=== PATIENT | female | born 1975 | race African-American/Black ===

== ENCOUNTER 2018-08-08 18:22 | Emergency (ER) | payer OTHER ==
[~2018-08-08] VITALS: Ht 157.5 cm; Wt 115.7 kg
[2018-08-08 18:56] LABS: ABSOLUTE NEUTROPHILS 14.3 thou/uL (1.4-8.2); BASOPHILS 0.5 % (0.0-2.0); EOSINOPHILS 0.4 % (0.0-3.0); HEMATOCRIT 38.1 % (37.0-47.0); HEMOGLOBIN 11.7 gm/dL (12.0-15.0); LYMPHOCYTES 8.6 % (24.0-44.0); MCH 22.6 pg (26.0-34.0); MCHC 30.8 g/dL (28.0-37.0); MCV 73.4 fL (80.0-100.0); MONOCYTES 5.1 % (1.0-8.0); PLATELET COUNT 344 thou/uL (150-400); POLYS 85.4 % (36.0-66.0); RDW 18.2 % (10.5-14.5); WBC 16.7 thou/uL (4.0-11.0)
[2018-08-08 19:07] LABS: CALCIUM 9.2 mg/dL (8.5-10.1); CREATININE 0.8 mg/dL (0.6-1.0); POTASSIUM 3.9 mmol/L (3.5-5.1)
[2018-08-08 19:40] LABS: ANISOCYTOSIS 2+; HYPOCHROMASIA 1+; PLATELET ESTIMATE NORMAL
[2018-08-08 19:41] LABS: MICROCYTES 2+
[2018-08-08] MEDS ORDERED: METFORMIN HCL500 MG PO (19:58)
[2018-08-08] MEDS ORDERED: KEFLEX500 M1 PO (19:58)
[2018-08-08] MEDS ORDERED: BACTRIM DS TAB1 EACH PO (19:58)
[2018-08-08 21:12] VITALS: BP 148/87
== END 2018-08-08 21:13 | disposition home or self-care (01) ==
LOC: ER 18:22
PROVIDERS: Emergency Medicine
DX: L03.221 Cellulitis of neck (principal); E11.9 Type 2 diabetes mellitus without complications; E78.00 Pure hypercholesterolemia, unspecified

== ENCOUNTER 2018-08-12 00:42 | Inpatient (IN) | payer OTHER ==
[2018-08-12] VITALS (12 sets, daily range): BP systolic 126–185; BP diastolic 71–107
[~2018-08-12] VITALS: Ht 157.5 cm; Wt 116.1 kg
--- NOTE | ~2018-08-12 | O ---
[facility] [place] [address] OPERATIVE REPORT Name: [facility] Room #: 449-I [facility] IN ..#: [id number] Admission: 08/12/18 ������������������ Attend Phys: Eloise Naqvi MD Discharge: 08/24/18 ������������������ Date of : 77 Report #: [id number] THIS REPORT FOR: //name// CC: WINNIE physician/PCP Eloise Naqvi DATE OF SERVICE: 08/19/2018 PREOPERATIVE DIAGNOSIS: Neck abscess with persistent drainage, status post incision and drainage. POSTOPERATIVE DIAGNOSIS: Neck abscess with fasciitis. OPERATIVE PROCEDURE: Incision, drainage and debridement of neck abscess and necrotic fascia. OPERATING SURGEON: Mike Ortiz MD. INDICATIONS FOR THE PROCEDURE: The patient is a 42-year-old female who presented with right-sided neck abscess. She had an incision and drainage done few days ago; however, she continues to have persistent drainage and on evaluation, was noted to have a residual abscess with necrotic fascia. The patient advised debridement and incision and drainage. DESCRIPTION OF PROCEDURE: After explaining to the patient in detail and informed consent was obtained, the patient was identified in the preoperative holding area. The patient was transferred to the operating room and was placed in supine position. Sequential compression devices were placed for DVT prophylaxis. The patient was already on antibiotics. No other preoperative antibiotics were given. The right side of the neck was prepped and draped in a sterile fashion. The previous neck incision was then extended by another 4 cm in the posterolateral direction and towards the neck. There were a lot of necrotic fascia that was noted, which was all excised using the Metzenbaum scissors. Thorough saline irrigation of the cavity was then given. There was also some necrotic fascia in the suprascapular region, which was all gently taken down. After packing all the fascia, thorough saline irrigation was given. All the loculations were broken down. The wound was then packed with 1/2-inch iodoform gauze. Dressing was placed. The patient was stable at the end of the procedure. The patient was awoken up from anesthesia and was transferred to the recovery room in stable condition. ESTIMATED BLOOD LOSS: 25 mL. CONDITION: The patient is stable. FLUIDS GIVEN: Per Anesthesia note. [facility] [address] [place] [address] O[facility]ATIVE REPORT [facility] Room #: 449-I [facility] IN [facility].#: [id number] Admission: 08/12/18 ������������������ Attend Phys: Eloise Naqvi MD Discharge: 08/24/18 ������������������ Date of : 77 Report #: [id number] SPECIMEN SENT: Pus for culture and sensitivity. ��������������������������������������������� ���������������������������������������� By: ��������������������������������������������� [id number] Mike Ortiz MD /nt
[~2018-08-12 00:42] MED LIST: BACTRIM DS TAB1 EACH PO; KEFLEX500 M1 PO; METFORMIN HCL500 MG PO
[2018-08-12 01:31] LABS: HEMATOCRIT 37.4 % (37.0-47.0); HEMOGLOBIN 11.6 gm/dL (12.0-15.0); MCH 22.5 pg (26.0-34.0); MCHC 30.9 g/dL (28.0-37.0); PLATELET COUNT 368 thou/uL (150-400); RBC 5.13 mil/uL (4.20-5.00); RDW 18.1 % (10.5-14.5); WBC 22.7 thou/uL (4.0-11.0)
[2018-08-12 01:39] LABS: CALCIUM 10.1 mg/dL (8.5-10.1); CREATININE 0.8 mg/dL (0.6-1.0)
[2018-08-12 02:08] LABS: ABSOLUTE NEUTROPHILS 16.6 thou/uL (1.4-8.2)
[2018-08-12 02:10] LABS: ANISOCYTOSIS 2+; HYPOCHROMASIA 2+; MICROCYTES 1+; POIKILOCYTOSIS 2+; POLYCHROMASIA 1+
[2018-08-12 02:11] LABS: LARGE PLATELETS FEW; PLATELET ESTIMATE NORMAL
[2018-08-12 04:43] LABS: HDL CHOLESTEROL 22 mg/dL (>40); LDL CHOLESTEROL 145 mg/dL (<100); TC:HDL 8.8 Ratio (Not establshd); TRIGLYCERIDE 139 mg/dL (<150); VLDL 28 mg/dL (<40)
[2018-08-12 04:52] LABS: CHOLESTEROL 193 mg/dL (<200)
[2018-08-12 04:58] LABS: SERUM ASSESSMENT Clear
--- NOTE | 2018-08-12 06:48 | NUR ---
PATIENT WAS A NEW ADMISSION TO THE UNIT THIS SHIFT. SHE ARRIVED VIA CART FROM THE ER AND WAS ABLE TO AMBULATE TO BED WITHOUIT INCIDENT. PATIENT IS FULLY ORIENTED AND ABLE TO PARTICIPATE IN ADMISSION AND CALL APPROPRIATELY FOR NEEDS. NURSE TO COMPLETE ADMISSION PROCESS AND INITIATE CARE PLAN.
--- NOTE | 2018-08-12 09:34 | NUR ---
WOUND CARE CONSULT; THIS PATIENT HAS THE S/S CONSISTANT WITH AN ABCESS OF THE POSERIOR NECK. INDURATION NOTED TO THE NECK AND UPPER BACK DRAINING PURULENT BROWNISH RED THICK DRAINAGE. THE PATIENT IS IN PAIN RECIEVING MORPHINE IV AT THIS TIME. SHE IS VERY UNCOMFORTABLE. A BOARDERED FOAM DRESSING WAS IN PLACE AND WAS OVERTAKEN BY THE DRAINAGE. RECOMMENDATION; AQUACEL AG TO WOUND BED, COVER WITH A BOARDERED FOAM DRESSING, CHANGE DAILY/PRN DISCUSSED WITH ZACHARY
--- NOTE | 2018-08-12 12:18 | NUR ---
Nutrition: screen for wound, however, wound on neck found to be abcess. Pt c/o pain, receiving morphine. Awaiting surgery consult and is currently NPO for possible I&D. BUN 5, no albumin. Meds reviewed. "0" pt's on nsg nutrition risk assessement. Assess at low nutrition risk at this time.
[2018-08-12 12:25] LABS: BE(vivo) -3.2 mmol/L (-2 to +3); HCO3 22.9 mmol/L (22.0-26.0); PCO2 45.4 mmHg (35.0-45.0); PO2 95.5 mmHg (80.0-100.0); sO2 96.7 % (92.0-98.0)
[2018-08-12 12:26] LABS: pH 7.321 (7.360-7.450)
[2018-08-12 15:07] LABS: GLYCOHEMOGLOBIN (HGB A1C) 11.7 % (4.8-5.6)
--- NOTE | 2018-08-12 19:00 | NUR ---
ASSUMED PATIENT CARE AT 0700. A/O X4. NECK HAS EDMEA WITH OPEN ULCER AND DRAINAGE. VSS WITH TEMP. SATRT 02 3L/NC AT THIS TIME. PATIENT AMBULATED IN ROOM. NPO UNTILL NOW. PATIENT WENT TO OR TO HAVE NECK ABCESS I &D. WILL KEEP MONITOR.
[2018-08-13] VITALS (10 sets, daily range): BP systolic 118–150; BP diastolic 59–90
[2018-08-13 05:24] LABS: HEMATOCRIT 30.4 % (37.0-47.0); MCH 22.7 pg (26.0-34.0); MCHC 30.6 g/dL (28.0-37.0); MCV 73.9 fL (80.0-100.0); RBC 4.11 mil/uL (4.20-5.00); RDW 18.4 % (10.5-14.5)
[2018-08-13 05:30] LABS: CREATININE 0.6 mg/dL (0.6-1.0); POTASSIUM 4.3 mmol/L (3.5-5.1)
[2018-08-13 05:36] LABS: CALCIUM 7.9 mg/dL (8.5-10.1)
[2018-08-13 05:43] LABS: HEMOGLOBIN 9.3 gm/dL (12.0-15.0)
--- NOTE | 2018-08-13 05:51 | NUR ---
PATIENT IS PROGRESSING SLOWLY IN HER CARE PLAN. VITAL SIGNS STABLE WITH PATIENT HAVING NO COMPLAINTS OF NAUSEA. PATIENT COMPLAINED OF PAIN IN BACK OF NECK FROM SURGICAL SITE AND WAS TREATED EFFECTIVELY WITH MEDICATION AND REPOSITIONING. PATIENT BROUGHT UP FROM PACU AROUND 2100 FOLLOWING I&D OF NECK WOUND. VITAL SIGNS TAKEN PER PROTOCOL. PATIENT EXHIBITED FEVER OF 102 AT HIGHEST BUT HAS SINCE SHOWN REDUCTION WITH TYLENOL AND NON PHARMACOLOGICAL INTERVENTION. BREATHING STABLE ON OXYGEN EVIDENCED BY READINGS ON CONTINUOUS SATURATION MONITOR. SURGICAL SITE HAS SHOWN SOME DRAINAGE AND HAS BEEN REINFORCED. PATIENT HAS BEEN UP TO THE BEDSIDE COMMODE WITH ASSISTANCE INCIDENT FREE, BUT SHOULD STILL BE CONSIDERED A FALL RISK. FULLY ORIENTED AND ABLE TO PARTICIPATE IN CARE. CONTINUE PLAN OF CARE.
--- NOTE | 2018-08-13 09:12 | HC ---
[facility] [place] [address] [facility] AD[facility] IN M.R.#: [id number] Admission: 08/12/18 ������������������ Attend Phys: Louie Garzon MD Discharge: ������������������ Date of : 77 Report #: [id number] THIS REPORT FOR: //name// CC: FAM physician/PCP Louie Garzon TYPE OF REPORT: Infectious disease consultation. ATTENDING PHYSICIAN: Louie Garzon M.D. REASON FOR CONSULTATION: Neck abscess. HISTORY OF PRESENT ILLNESS: The patient is a 42-year-old white woman, unwell for about a week, who apparently visited the Emergency Room this past Friday and was told nothing was the matter with her neck. Sonogram revealed no evidence of abscess. She returns to [facility] last night and she is admitted. She is having drainage per neck. On reviewing the CT scan of the neck, the most important thing is that she actually has a right upper lung abscess as well as swelling of the soft tissues of the right neck, which at present time are profusely draining. The patient is under the effects of morphine sulfate and she is totally unable to give much of any significant medical information. She is diabetic and on metformin for 6-8 years. At the Emergency Room, she visited on Friday, she was prescribed Bactrim and Keflex, which did not help with her present problem. DRUG ALLERGIES: None listed. MEDICATIONS: The patient is on treatment with single dose Zosyn 4.5 grams IV start, vancomycin 1250 mg IV every 12 hours, morphine sulfate 4 mg IV q. 4h. p.r.n., ondansetron 4 mg IV q. 4h. p.r.n., acetaminophen p.r.n., p.r.n. glucose, glucagon and insulin lispro per sliding scale. SOCIAL HISTORY: , 3 grown children. No tobacco. Occasional alcohol. PAST MEDICAL HISTORY: 1. Morbid obesity. 2. Diabetes mellitus for a number of years. On physical exam, the patient has obvious periodontal disease of the maxilla. She has a draining abscess of the neck and the CT scan of the chest revealed a right upper lobe lung abscess. FAMILY HISTORY: Not obtained. REVIEW OF SYSTEMS: Unable to obtain. PHYSICAL EXAMINATION: [facility] [address] [place] [address] CONSULTATION Name: [facility] Room #: [facility] ADM IN ..#: [id number] Admission: 08/12/18 ������������������ Attend Phys: Louie Garzon MD Discharge: ������������������ Date of : 77 Report #: [id number] GENERAL: Morbidly obese woman. VITAL SIGNS: Temperature 100.5, pulse 132, respirations 22, BP 145/90, height 5 feet 2 inches and weight 256 pounds. HEENMT: Pupils reactive. Mouth: The mandible, gums are obviously affected with periodontal disease. No thrush or hairy leukoplakia. NECK: Revealed swelling of the soft tissues and obviously drainage with some odor either coming from her mouth or from her neck, cannot say for sure. LUNGS: Clear to auscultation. HEART: S1 and S2. No gallop or murmur. BREASTS: Deferred. ABDOMEN: Obese and soft. No masses or megaly. PELVIC AND RECTAL: Deferred. EXTREMITIES: No clubbing or cyanosis. NEUROLOGICAL: Grossly within normal limits. LABORATORY DATA: Sodium 133, potassium 4, BUN 5, creatinine 0.8, glucose 337 and calcium 10.1. Lipids were obtained. The C-reactive protein is 379.7 mg/L. WBC 22,700; hemoglobin 11.6 g/dL and platelets 368,000. The test is negative. Hemoglobin A1c pending. Blood cultures and abscess cultures were obtained, they are all pending at the time of this dictation. RADIOLOGY EVALUATION: A CT scan of the soft tissues of the neck reveals soft tissue swelling on the neck and had right upper lung lesion compatible with a lung abscess. ASSESSMENT: 1. Neck abscess, question combination organisms in view of foul odor though odor maybe coming from the mouth due to periodontal disease. 2. Right lung abscess. 3. Diabetes mellitus. 4. Morbid obesity. SUGGESTIONS: Discussed the patient's situation with Dr. Louie Garzon and recommended CT scan of the chest. T-SPOT TB test. ESR. CRP. MRSA screen by PCR. Surgical consultation for incision and drainage of neck abscess. Full CT scan of the chest for evaluation of pulmonary abscess. We will need a dentist appointment later on an outpatient basis. Continue vancomycin and Zosyn 3.375 grams IV every 6 hours. Arterial blood gases had been ordered as well. Dr. Garzon, thank you for requesting my suggestions. ��������������������������������������������� <ELECTRONICALLY SIGNED> ���������������������������������������� By: Ethan Guthrie MD ��������������������������������������������� 08/13/18 0912 [id number] Ethan Guthrie MD /nt
--- NOTE | 2018-08-13 20:08 | NUR ---
PT RATES PAIN TO NECK SURGICAL SITE BETWEEN 7 AND 10 OUT OF 10..MEDICATED PER EMAR...VERY FLAT AFFECT..DROWSY...
--- NOTE | 2018-08-14 03:27 | NUR ---
PT UP IN CHAIR, AWAKE. HAS HAD RESTLESS NIGHT. C/O NECK BEING UNCOMFORTABLE. NECK REMAINS SWOLLEN, INFLAMED, PINK/RED AND WITH DRAINAGE. PT SR ON MONITOR. CONTINUES ON 2L NC AND ON MAINTENANCE IVFs. AM LABS TO BE DRAWN AND REVIEWED.
[2018-08-14 04:33] VITALS: BP 155/102
[2018-08-14 06:57] LABS: HEMATOCRIT 28.9 % (37.0-47.0); HEMOGLOBIN 8.8 gm/dL (12.0-15.0); MCH 22.2 pg (26.0-34.0); MCHC 30.6 g/dL (28.0-37.0); MCV 72.7 fL (80.0-100.0); RBC 3.98 mil/uL (4.20-5.00); RDW 18.5 % (10.5-14.5); WBC 14.8 thou/uL (4.0-11.0)
[2018-08-14 07:05] VITALS: BP 140/92
[2018-08-14 07:18] LABS: CALCIUM 8.6 mg/dL (8.5-10.1); CREATININE 0.8 mg/dL (0.6-1.0); POTASSIUM 3.3 mmol/L (3.5-5.1)
[2018-08-14 11:31] VITALS: BP 132/89
--- NOTE | 2018-08-14 11:48 | NUR ---
AAOX4 PLESANT WITH FLAT AFFECT. USES CALL LIGHT APPROPIRATELY. MORPHNE FOR PAIN. SPOUSE AT BEDSIDE. GOOD APPETITE. DRESSING TO POSTERIOR NECK DRY AND INTACT. UP TO BR WITH SLOW STEADY GAIT.
--- NOTE | 2018-08-14 14:59 | NUR ---
INITIAL ASSESSMENT: SW reviewed chart and spoke with nursing and attending physician. Pt was admitted from home due to sepsis/neck abscess. Pt is s/p I&D of abscess. Pt remains on IV abx. SW met with pt at bedside. Introduced role of SW. Pt is alert/orientated x 4. Pt reports she lives at home with her . Prior to admission, pt was independent with ADLs. No use of DME. Pt is currently on O2. Pt states she does not have a PCP. Pt has a list of [facility] providers. Unsure of discharge timeframe at this time. Plan is for pt to discharge home when medically stable. SW is following to assist as needed with discharge planning.
[2018-08-14 16:47] VITALS: BP 125/82
[2018-08-14 18:08] LABS: HIV ANTIBODY Non Reactive (Non Reactive)
--- NOTE | 2018-08-14 18:13 | NUR ---
POSTERIOR NECK DRESSING CHANGED - PURULENT DRAINAGE. WOUND REPACKED WITH AQUAGEL COVERED WITH KERLIX AND ABD.
[2018-08-14 19:30] VITALS: BP 117/68
[2018-08-15 03:59] VITALS: BP 138/86
[2018-08-15 05:35] LABS: HEMATOCRIT 28.3 % (37.0-47.0); HEMOGLOBIN 8.7 gm/dL (12.0-15.0); MCH 22.6 pg (26.0-34.0); MCHC 30.9 g/dL (28.0-37.0); MCV 73.1 fL (80.0-100.0); RBC 3.87 mil/uL (4.20-5.00); RDW 18.3 % (10.5-14.5); WBC 9.7 thou/uL (4.0-11.0)
[2018-08-15 05:36] LABS: CALCIUM 8.1 mg/dL (8.5-10.1); CREATININE 0.7 mg/dL (0.6-1.0); POTASSIUM 3.3 mmol/L (3.5-5.1)
--- NOTE | 2018-08-15 05:47 | NUR ---
ASSUMED CARE OF PT AT 1900. A&Ox4, COOPERATIVE. VS STABLE, SR ON TELE. C/O PAIN IN POSTERIOR NECK, WITH ERYTHEMA AND OPEN WOUND. PAIN MEDS GIVEN X 2 WITH PARTIAL RELIEF AND DRESSING CHANGED W/ SMALL AMOUNT OF SEROUSANGIOUS DRAINAGE. IV FLUIDS AND ANTIBX'S INFUSING ORDERED. WALKED HALLWAYS W/ SBA. NO ACUTE DISTRESS. DAUGHTER AT BEDSIDE. PROGRESSING TOWARDS POC GOALS.
[2018-08-15 08:16] VITALS: BP 141/78
[2018-08-15 16:29] VITALS: BP 104/65
--- NOTE | 2018-08-15 18:10 | NUR ---
AAOX4 VERY PLEASANT AND COOPERATVE. MSO4 AND HYDROCODONE FOR PAIN IN POSTERIOR NECK WOUND. DRESSING CHANGED X2 AND PACKED PURULENT WOUND WITH AQUAGEL COVERED WITH KERLIX AND ABD. RIGHT UPPER ARM IV SALINE LOCKED. FAIR APPETITE TOLERATING FOOD AND FLUIDS WITHOUT C/O N/V. FAMILY AT BEDSIDED. SHOWER TAKEN THIS AM WITH GOOD TOLERATION OF ACTIVITY. ENCOURAGE PATIENT TO AMBULATE.
[2018-08-15 19:15] VITALS: BP 137/85
[2018-08-16 03:45] VITALS: BP 145/84
--- NOTE | 2018-08-16 03:55 | NUR ---
ASSUMED CARE AT START OF SHIFT PT C/O PAIN AT NECK WOUND SITE, DRESSING CHANGED AT 2300 LARGE AMOUNT OF PUS LIKE DRAINAGE NOTED, PAIN MEDICATION GIVEN PRESCRIBED , TOLERATED DRESSING . DISCUSSED PLAN OF CARE AND AGREEABLE , CARDIAC MONIOTR SHOWS NSR , WILL CONINTUE WITH POC AND EPORT CHANGES OR ABNORMAL FINDINGS.
[2018-08-16 07:41] VITALS: BP 135/97
[2018-08-16 14:30] LABS: T-SPOT.TB Negative
--- NOTE | 2018-08-16 16:06 | NUR ---
ASSUMED CARE OF PT AT APPROX 0700. PT IS ALERT AND ORIENTED X4, MONITOREDON TELE AND ABLE TO MAINTAIN 02 SAT >90 ON RA. DENIES SOA, EVEN NON LABORED BREATHING. COMPLAINS OF PAIN IN NECK AT SITE OF I AND D THAT IS CONTROLLED WITH PRN PAIN MEDICATIONS. ASSESSMENT CHARTED. WOUND CARE PROVIDED X2 TODAY DRESSING BECAME SATURATED AND WAS LEAKING. PT TOLERATED WELL. PT UPDATED ON POC AND DENIES ANY NEW CONCERNS OR QUESTIONS. WILL CONTINUE TO MONITOR.
[2018-08-16 16:29] VITALS: BP 147/80
[2018-08-16 20:00] VITALS: BP 149/95
[2018-08-17 00:08] VITALS: BP 137/81
--- NOTE | 2018-08-17 03:28 | NUR ---
ASSUMED PT CARE AROUND 1900. A&OX4. C/O POSTERIOR NECK PAIN AT ABSCESS SITE. HYDROCODONE GIVE INDICATED FOR PAIN. PT STATED PAIN IMPROVED WITH MEDICATION. PT SLEPT PART OF THE NIGHT. RESP EVEN AND UNLABORED. VSS. UP AD ALEXANDRE AROUND THE ROOM WITH STEADY GAIT. NECK WOUND DRESSING CHANGED TWICE SO FAR THIS SHIFT DUE TO EXCESS DRAINAGE. PROGRESSING SLOWLY TOWARD POC GOALS. WILL CONTINUE TO MONITOR FURTHER.
[2018-08-17 04:00] VITALS: BP 143/84
[2018-08-17 06:56] LABS: HEMATOCRIT 29.4 % (37.0-47.0); HEMOGLOBIN 8.9 gm/dL (12.0-15.0); MCH 22.2 pg (26.0-34.0); MCHC 30.3 g/dL (28.0-37.0); MCV 73.2 fL (80.0-100.0); RBC 4.01 mil/uL (4.20-5.00); RDW 18.3 % (10.5-14.5); WBC 6.2 thou/uL (4.0-11.0)
[2018-08-17 07:04] LABS: CALCIUM 8.8 mg/dL (8.5-10.1); CREATININE 0.7 mg/dL (0.6-1.0); MAGNESIUM 2.2 mg/dL (1.8-2.4); POTASSIUM 3.5 mmol/L (3.5-5.1)
[2018-08-17 07:49] VITALS: BP 151/99
--- NOTE | 2018-08-17 08:00 | NUR ---
INSTRUCTED BY YEMI LLANES AND DR. MAGAÑA TO TRANSFER PT TO MED/SURG SARY.
--- NOTE | 2018-08-17 08:26 | NUR ---
REPORT CALLED TO [facility] 4TH FLOOR. TELE DISOCONTINUED AND PT TRANSFERRED TO ROOM 455.
[2018-08-17 08:44] VITALS: BP 151/82
--- NOTE | 2018-08-17 11:52 | NUR ---
PT RECEIVED FROM 3W THIS AM AT 0820. PT ALERT AND IN NO ACUTE DISTRESS. POSTERIOR NECK INFECTION. I&D ON 08/12 BUT STILL DRAINING PURULENT DRAINAGE. DR. RETANA IN AND STATES PT NEEDED ADDITIONAL I&D FOR INCREASED TISSUE SWEELING. ULTRASOUND OF AREA TO BE COMPLETED. ANTIBIOTICS CHANGED. INCISION AREA FLUSHED W/ NS AND REDRESSED PER DR. PRATT.
[2018-08-17 14:20] VITALS: BP 151/92
--- NOTE | 2018-08-17 18:39 | NUR ---
PT SEEN BY WOUND CARE NURSE THIS AFTERNOON AND DSNG CHANGED. PURULENT DRAINAGE OUT. NORCO TAKING CARE OF PAIN. ACCUCK BETTER. PT UP IN THE ROOM.
[2018-08-17 20:37] VITALS: BP 168/101
--- NOTE | 2018-08-18 02:57 | NUR ---
Patient assessed and is alert x 4. Skin warm and dry. Resp even and unlabored. SITTING UP IN CHAIR HAS DRESSING DRY AND IS LEAKING SOME, REINFORCED AND IS DRAINING GREESNISH/ROMEO DISCHARGE. LUNGS CTA. TAKING DIET WELL. RIGHT UPPER ARM IV GETTING SORE, HAD NEW #22 STARTED IN LEFT UPPER ARM/CHEST THAT WORKIS WELL. IV ANTIBIOTICS CONTINUE TO INFUSE. PAIN MED GIVEN WITH GOOD RELIEF. NECK WOUND REINFORCED AGAIN THIS AM. NO OTHER WOUNDS NOTED. CONT PLAN OF CARE. FAMILY AT BEDSIDE. ON ROOM AIR.
[2018-08-18 04:12] VITALS: BP 166/103
[2018-08-18 04:54] LABS: HEMATOCRIT 28.9 % (37.0-47.0); HEMOGLOBIN 8.9 gm/dL (12.0-15.0); MCH 22.7 pg (26.0-34.0); MCHC 30.7 g/dL (28.0-37.0); RBC 3.9 mil/uL (4.20-5.00); RDW 18.5 % (10.5-14.5); WBC 5.9 thou/uL (4.0-11.0)
[2018-08-18 04:57] LABS: CALCIUM 8.4 mg/dL (8.5-10.1); CREATININE 0.6 mg/dL (0.6-1.0); POTASSIUM 4.1 mmol/L (3.5-5.1)
[2018-08-18 07:18] VITALS: BP 163/91
[2018-08-18 08:55] VITALS: BP 155/91
--- NOTE | 2018-08-18 10:43 | NUR ---
Nutrition: No new wt. Nsg noted pt taking po well, no intake records. BG 118-181, BUN 3. Meds reviewed. Physician noted yesterday pt improved without complaints but some neck pain and may need drainage and debridement on Fri. Rec offer snacks/supplement PRN. Continues at low nutrition risk.
--- NOTE | 2018-08-18 12:01 | NUR ---
DP FAXED FACESHEET TO [facility] [phone] & [facility] [phone] ASKING IF THEY WOULD CHECK HOME INFUSION BENEFITS IN CASE PATIENT NEES IV ANTIBIOTICS AT [place].
[2018-08-18 14:32] VITALS: BP 145/80
--- NOTE | 2018-08-18 17:23 | NUR ---
ASSUMED CARE OF PT AT APPROX 0700. PT IS ALERT AND ORIENTED X4 AND ABLE TO MAINTAIN 02 SAT >90 ON RA. ASSESSMENT CHARTED. PT COMPLAINS OF NECK PAIN RELATED TO WOUND THAT IS CONTROLLED WITH PRN PAIN MEDICATIONS. DRESSING CHANGE PROVIDED X3 TODAY. PT WILL GO FOR MORE SURGERY TO WOUND IN THE AM. TO BE NPO AFTER MIDNIGHT. PT HAS BEEN UPDATED ON POC. DENIES FURTHER QUESTIONS OR CONCERNS. WILL CONTINUE TO MONITOR.
[2018-08-18 19:26] VITALS: BP 122/86
[2018-08-19 03:31] VITALS: BP 147/81
--- NOTE | 2018-08-19 05:23 | NUR ---
Assumed care at 1845. Pt resting in bed. AOX4. VSS. Up at jennifer with steady gait. Has been NPO since midnight for possible surgery. Gave hydrocodone once for c/o posterior neck pain at abscess site. Resp even and unlabored. No identified needs at the moment. Will continue to monitor.
[2018-08-19 05:25] LABS: HEMATOCRIT 30.8 % (37.0-47.0); HEMOGLOBIN 9.4 gm/dL (12.0-15.0); MCH 22.6 pg (26.0-34.0); MCHC 30.4 g/dL (28.0-37.0); MCV 74.2 fL (80.0-100.0); RBC 4.15 mil/uL (4.20-5.00); RDW 17.9 % (10.5-14.5); WBC 6.3 thou/uL (4.0-11.0)
[2018-08-19 05:37] LABS: CALCIUM 8.4 mg/dL (8.5-10.1); CREATININE 0.8 mg/dL (0.6-1.0); MAGNESIUM 1.8 mg/dL (1.8-2.4); POTASSIUM 3.9 mmol/L (3.5-5.1)
--- NOTE | 2018-08-19 07:49 | NUR ---
RECEIVED REPORT FROM NIGHT NURSE AT 0700, PT IS OFF THE UNIT AT THIS MOMENT FOR I& D. NO INSULIN GIVEN AT THIS MOMENT. WILL CONTINUE TO MONITOR.
[2018-08-19 09:30] VITALS: BP 142/64
--- NOTE | 2018-08-19 12:04 | NUR ---
received voice message from [facility] ([facility] ) , able to assist with dcp if needing home iv, [facility], if needs wound vac- [facility] wound vac. can have 50 nursing visits per year and she has not used any. don't think she going to skilled she is to young. if have any question on needs call [phone] ext [phone]"/narda with [facility]. information passed on to cm/sw team
--- NOTE | 2018-08-19 14:29 | NUR ---
CONSULTED TO PLACE A PICC FOR A PATIENT POST SURGICAL PROCEDURE WITH IV ANTIBIOTICS NEEDED. ORDER AND CONSENT NOTED. THE PROCEDURE WELL BENIFITS AND RISKS DISCUSSED WITH THE PATIENT AND SHE VERBALIZED UNDERSTANDING. THE LEFT UPPER ARM BASILIC WAS WIDLEY PATENT. A #4F DOUBLE LUMEN POWER PICC WAS PLACED PER HOSPITAL POLICY AFTER A BEDSIDE TIMEOUT WAS COMPLETED. PICC WAS TRIMMED TO 52CM AND ADVANCED WITHOUT DIFFICULTY TO 51CM. A STAT CHEST XRAY WAS ORDERED FOR CONFIRMATION.
[2018-08-19 15:00] VITALS: BP 146/91
--- NOTE | 2018-08-19 15:14 | NUR ---
SHOULD PT NEED HOME INFUSION FOR IV ABX UPON DISHCARGE REFERRAL HAD BEEN SENT TO [facility]. ORDERS AND IV ABX REC WILL NEED TO BE FAXED TO THEM AT . CALL THEM AT OR THE PHARMASIST DIRECTLY AT . [facility] INDICATED THEY CAN PROVIDE HOME HEALTH ORDERS WILL NEED TO BE FAXED TO CALL THEM AT .
[2018-08-19 20:13] VITALS: BP 150/88
[2018-08-20 03:19] VITALS: BP 147/79
--- NOTE | 2018-08-20 04:41 | NUR ---
Pt. rested quietly at intervals during the night when checked on during frequent rounds. She c/o neck pain and was given po pain meds (see emar) with some relief noted. Dressing to neck is intact.
[2018-08-20 06:42] LABS: HEMATOCRIT 29.9 % (37.0-47.0); HEMOGLOBIN 9.2 gm/dL (12.0-15.0); MCH 22.7 pg (26.0-34.0); MCHC 30.8 g/dL (28.0-37.0); MCV 73.6 fL (80.0-100.0); RBC 4.06 mil/uL (4.20-5.00); RDW 18.4 % (10.5-14.5); WBC 7.5 thou/uL (4.0-11.0)
[2018-08-20 06:51] LABS: CALCIUM 8.5 mg/dL (8.5-10.1); CREATININE 0.6 mg/dL (0.6-1.0); POTASSIUM 4.1 mmol/L (3.5-5.1)
[2018-08-20 08:00] VITALS: BP 143/86
[2018-08-20] MEDS ORDERED: HYDROCODON-ACE1 EAC7 PO (14:13)
[2018-08-20 15:00] VITALS: BP 147/75
--- NOTE | 2018-08-20 18:33 | NUR ---
PT STABLE THROUGHOUT SHIFT. PT C/O PAIN, ADDRESSED WITH MEDICATION WHICH OFFERED SUBSTANTIAL RELIEF. PT HAD NO OTHER COMPLAINTS. CHANGED DRESSING, FAMILY IN TO VISIT. PT RESTING COMFORTABLY.
[2018-08-20 19:08] VITALS: BP 133/72
--- NOTE | 2018-08-21 02:35 | NUR ---
ASSUMED CARE AROUND 1899. AXOX4. POSTERIOR NECK DRESSING DRANING SANGUINEOUS DRAIN. DRESSING CHNAGED. PAIN TX PER MD ORDER. DYLAN PICC INTACT. NO S/S ACUTE DISTRESS NOTED OR REPORTED AT THIS TIME. WILL CONT TO MONITOR FOR ANY CHANGES IN CONDITION.
[2018-08-21 04:59] VITALS: BP 142/66
[2018-08-21 09:00] VITALS: BP 149/100
--- NOTE | 2018-08-21 09:52 | NUR ---
DISCHARGE PLANNING. ANTICIPATED DISCHARGE TO HOME NEXT WEEK. PATIENT WILL NEED IV ANTIBIOTICS AT DISCHARGE. REFERRAL FAXED TO [facility], [facility], [facility] FOR IV ANTIOBIOTIC NEEDS. CALL PLACED TO [facility] TO NOTIFY. AWAITING CALL BACK. FOLLOWING TO ASSIST WITH DISCHARGE.
--- NOTE | 2018-08-21 09:55 | NUR ---
LIZA reviewed chart and spoke with nursing. Pt has second I&D yesterday for neck abscess. Pt remains on IV abx-Unasyn. Pt has PICC line in place. [facility] is following for home IV abx. senior media planner to fax additional info. LIZA contacted ID physician for final recommendations for IV abx. [facility] is following for services. Contact info for both agencies if pt is ready for discharge home over the weekend. Final discharge orders and summary will need to be faxed when available. LIZA is available to assist as needed. [facility]-- [facility]--
[2018-08-21 14:25] VITALS: BP 147/87
--- NOTE | 2018-08-21 15:06 | NUR ---
PT STABLE THROUGHOUT SHIFT. CHANGED DRESSING ON WOUND, PT TOLERATED WELL. PT C/O PAIN, MEDICATION ALLEVIATED PARTIALLY. FAMILY AT BEDSIDE.
[2018-08-21 20:35] VITALS: BP 152/93
[2018-08-22 03:45] VITALS: BP 146/90
--- NOTE | 2018-08-22 04:25 | NUR ---
ASSUMED CARE AROUND 1900. AXOX4. DRESSING CHANGED PER MD ORDER. NO S.S ACUTE DISTRESS NOTED OR REPORTED AT THIS TIME. WILL CONT TO MONITOR FOR ANY CHANGES IN CONDITION.
[2018-08-22 04:51] LABS: HEMATOCRIT 30.3 % (37.0-47.0); HEMOGLOBIN 9.4 gm/dL (12.0-15.0); MCHC 30.9 g/dL (28.0-37.0); MCV 74.3 fL (80.0-100.0); RBC 4.07 mil/uL (4.20-5.00); RDW 18.5 % (10.5-14.5); WBC 6.7 thou/uL (4.0-11.0)
[2018-08-22 05:14] LABS: CALCIUM 8.7 mg/dL (8.5-10.1); CREATININE 0.7 mg/dL (0.6-1.0)
[2018-08-22 07:37] VITALS: BP 141/80
[2018-08-22 15:49] VITALS: BP 173/88
--- NOTE | 2018-08-22 16:56 | NUR ---
PT STABLE THROUGHOUT SHIFT. C/O PAIN ADDRESSED WITH MEDICATION. CHANGED DRESSING ON NECK 3X. FAMILY AT BEDSIDE. PT RESTING COMFORTABLY.
[2018-08-22 19:21] VITALS: BP 124/68
[2018-08-23 05:46] VITALS: BP 125/72
[2018-08-23 08:30] VITALS: BP 147/83
[2018-08-23 08:36] LABS: HEMATOCRIT 30.5 % (37.0-47.0); HEMOGLOBIN 9.4 gm/dL (12.0-15.0); MCH 22.9 pg (26.0-34.0); MCHC 30.9 g/dL (28.0-37.0); RBC 4.13 mil/uL (4.20-5.00); RDW 19.1 % (10.5-14.5); WBC 6.4 thou/uL (4.0-11.0)
[2018-08-23 08:44] LABS: CALCIUM 8.7 mg/dL (8.5-10.1); CREATININE 0.6 mg/dL (0.6-1.0); POTASSIUM 3.9 mmol/L (3.5-5.1)
--- NOTE | 2018-08-23 15:02 | NUR ---
PT STABLE THROUGHOUT SHIFT. CHANGED DRESSING, WOUND APPEARS TO BE HEALING WELL. NO NEW CONCERNS, PT C/O PAIN WHICH WAS ALLEVIATED VIA MEDICATION. FAMILY AT BEDSIDE. PT RESTING.
[2018-08-23 19:10] VITALS: BP 128/73
[2018-08-23 20:53] VITALS: BP 117/78
--- NOTE | 2018-08-24 03:19 | NUR ---
ASSUMED CARE AROUND 1900. AXOX4. POSTERIOR NECT DRESSING CDI. NO S/S ACUTE DISTRESS NOTED OR REPORTED AT THIS TIME. WILL CONT TO MONITOR FOR ANY CHANGES IN CONDITION.
[2018-08-24 04:10] VITALS: BP 122/80
[2018-08-24 08:52] VITALS: BP 118/85
[2018-08-24 13:51] VITALS: BP 118/85
--- NOTE | 2018-08-24 13:56 | NUR ---
DISCHARGE NOTE: LIZA reviewed chart and spoke with nursing, attending physician and ID physician. Pt is medically stable for discharge home today. Pt to need IV Unasyn 12 gm daily for 7 days. It will need to be a continuous infusion. LIZA faxed info to [facility] and spoke with [facility]. Pt's copay if she has not met her out of pocket deductible is $7.94/day until OOP is met. Once OOP is met, pt will be covered at 100%. LIZA met with pt at bedside to provide update. Pt is aware and agreeable with copay. LIZA explained that [facility] will come provide education and teaching prior to discharge. LIZA faxed script to [facility]. [facility] RN to come provide bedside teaching this afternoon. LIZA notified intake at [facility]. Dr. Garzon to follow for orders. Pt will follow up with Dr. Guthrie next Friday. Contact info for [facility] and [facility] placed in discharge summary. Pt's family will provide transportation home. Patient Choice of Vendor form signed and placed on pt's chart. [facility] is available to assist should needs arise.
[2018-08-24] MEDS ORDERED: SULBACTAM IV (14:46)
[2018-08-24] MEDS ORDERED: AMPICILLIN IV (14:46)
[2018-08-24] MEDS ORDERED: WORK RELEASE (15:48)
[2018-08-24 16:31] VITALS: BP 118/70
--- NOTE | 2018-08-24 16:45 | NUR ---
ASSUMED CARE AT 0700, SHIFT ASSESSMNET DONE, MEDS GIVEN, REPORTED PAIN, PRN PAIN MEDS GIVEN. DRESSING CHANGE TO NECK WAS PERFORMED, PICTURE TAKEN. UP AD ALEXANDRE. DISCHARGE ORDER RECEIVED, PICC LINE IN PLACE FOR IV ANTIBIOTICS. WILL CONTINUE TO ASSESS AND ASSIST WITH ADLs NEEDED.
[2018-08-24 17:46] VITALS: BP 118/85
--- NOTE | 2018-08-26 15:45 | HC ---
[facility] [place] [address] [facility] IN ..#: [id number] Admission: 08/12/18 ������������������ Attend Phys: Eloise Naqvi MD Discharge: 08/24/18 ������������������ Date of : 77 Report #: [id number] THIS REPORT FOR: //name// CC: WINNIE physician/PCP Eloise Naqvi DATE OF SERVICE: 08/24/2018 CHIEF COMPLAINT: Surgical wound to the neck. HISTORY OF PRESENT ILLNESS: This is a 42-year-old female patient who was admitted to the hospital with a possible abscess to her neck. She underwent operative debridement by Dr. Ortiz on 08/12/2018 and then a subsequent additional debridement with drainage and debridement of the neck abscess and necrotic fascia on 08/19/2018. She has been managed by General Surgery followed by the hospitalist and Dr. Guthrie. Dr. Guthrie has specifically requested that I see her today prior to discharge. PAST MEDICAL HISTORY: Positive for type 2 diabetes mellitus, hyperlipidemia and medication noncompliance. MEDICATIONS: Include metformin, Bactrim and Keflex. ALLERGIES: None. SOCIAL HISTORY: Negative for alcohol or tobacco use. FAMILY HISTORY: Noncontributory. REVIEW OF SYSTEMS: CONSTITUTIONAL: The patient denies fever, chills or weight loss. NEUROLOGICAL: The patient denies focal numbness, weakness or tingling. EYES: The patient denies visual changes, redness, or drainage. ENT: The patient denies earache, nasal drainage or sore throat. CARDIOVASCULAR: The patient denies chest pain, palpitations or diaphoresis. PULMONARY: The patient denies cough or shortness of breath. GASTROINTESTINAL: The patient denies nausea, vomiting, diarrhea or abdominal pain. ORTHOPEDIC: The patient has pain and some drainage from her neck. Other systems in 14-point review of systems are negative. PHYSICAL EXAMINATION: VITAL SIGNS: At this time include temperature 37.0, pulse 84, respiratory rate of 18, blood pressure 118/85. GENERAL: This is a chronically ill-appearing female patient who appears to be in no distress. [facility] [address] [place] [address] CONSULTATION Name: [facility] Room #: 449-I [facility] IN ..#: [id number] Admission: 08/12/18 ������������������ Attend Phys: Eloise Naqvi MD Discharge: 08/24/18 ������������������ Date of : 77 Report #: [id number] HEENT: Head normocephalic. Nose and throat are clear. NECK: Demonstrates a fairly large surgical wound to the posterolateral on the right side of the neck, surgical wound. It is relatively clean and granulating. There is still some mucopurulent drainage, although the base is healthy, clean with granulation tissue. There is undermining on a 360 degrees around. No exposure of deep structure is noted at this time. LUNGS: Clear. HEART: Sounds normal. ABDOMEN: Bowel sounds present. LABORATORY STUDIES: Include sodium 138, potassium 3.9, chloride 103, CO2 27, BUN 6, creatinine 0.6. Hemoglobin A1c is 11.7. White blood cell count 6.4 with a hemoglobin 13.5, recent hemoglobin of 9.4 and hematocrit 30.5. CLINICAL IMPRESSION: 1. Surgical wound to the right and posterior neck following incision and debridement of abscess. 2. Diabetes mellitus with hyperglycemia. 3. Hyperlipidemia. RECOMMENDATIONS: At this point in time, the patient is going home today. We will recommend continuation of the packing orders per General Surgery. She is to follow up in one week with Dr. Guthrie. He has requested that we follow her up in the wound clinic, which we are happy to do; however, also happy to defer to Surgery's desire for her post discharge follow up as they have followed her during her hospitalization. I appreciate being asked to see her in consultation. ��������������������������������������������� <ELECTRONICALLY SIGNED> ���������������������������������������� By: Zane oMnge MD ��������������������������������������������� 08/26/18 1545 1521 1944 Zane Monge MD /nt
--- NOTE | 2018-09-04 12:35 | O ---
[facility] [place] [address] O[facility]AT[facility] Room #: 449-I [facility] M.R.#: [id number] Admission: 08/12/18 ������������������ Attend Phys: Eloise Naqvi MD Discharge: 08/24/18 ������������������ Date of : 77 Report #: [id number] THIS REPORT FOR: //name// CC: WINNIE physician/PCP Louie Garzon DATE OF SERVICE: 08/12/2018 PREOPERATIVE DIAGNOSIS: Neck abscess. POSTOPERATIVE DIAGNOSIS: Neck abscess. OPERATIVE PROCEDURE: Incision and drainage of neck abscess. OPERATING SURGEON: Dr. Mike Ortiz. INDICATIONS FOR THE PROCEDURE: The patient is a 42-year-old female who presented with features of gradually increasing redness, swelling and pain over the neck and it started to discharge pus. The patient clinically was noted to have a neck abscess. The patient was advised incision and drainage of the same. DESCRIPTION OF PROCEDURE: After explaining to the patient in detail and informed consent was obtained, the patient was identified in the preoperative holding area. The patient was transferred to the operating room and was placed in supine position. Sequential compression devices are placed for DVT prophylaxis. Preoperative antibiotics were given. After induction of anesthesia, the patient was placed in the right lateral position. The neck was prepped and draped in a sterile fashion. A transverse incision measuring approximately about 5 cm was made in the right posterior region and pus started to drain. The fascia appeared to be necrotic and the abscess appeared to be extending to the lateral aspect of the neck where on pressure, the pus was draining and therefore, I broke down all the loculations. The abscess was deep to the fascia. Part of it was superficial to the fascia. Most of the necrotic tissue was removed. Thorough saline irrigation was given. Approximately about 40 mL of thick pus was drained. Pus was sent for culture and sensitivity. After thorough saline irrigation, the wound was packed with 1/2 inch Nu Gauze. Dressing was placed. The patient was stable at the end of the procedure. The patient was awoken up from anesthesia and was transferred to the recovery room in stable condition. ESTIMATED BLOOD LOSS: 10 mL. CONDITION: The patient is stable. FLUIDS GIVEN: Per anesthesia notes. [facility] [address] [place] [address] OPERATIVE REPORT Name: [facility] Room #: 449-I [facility] [place] .R.#: [id number] Admission: 08/12/18 ������������������ Attend Phys: Eloise Naqvi MD Discharge: 08/24/18 ������������������ Date of : 77 Report #: [id number] SPECIMEN SENT: Pus for culture and sensitivity. ��������������������������������������������� <ELECTRONICALLY SIGNED> ���������������������������������������� By: Mike Ortiz MD ��������������������������������������������� 09/04/18 [id number] Mike Ortiz MD /nt
== END 2018-08-24 19:14 | disposition home health service (06) | DRG 853 ==
LOC: ER 00:42 → EROBS 03:46 → 4W 03:46 → 3W 03:46 → 4W 08-17 08:34
PROVIDERS: Emergency Medicine; Hospitalist; Internal Medicine; Internal Medicine Infectious Disease; Nurse Practitioner Family; Surgery; ADMIT Internal Medicine
DX: A41.81 Sepsis due to Enterococcus (principal); J85.2 Abscess of lung without pneumonia; L03.221 Cellulitis of neck; L02.11 Cutaneous abscess of neck; L02.419 Cutaneous abscess of limb, unspecified; Z68.42 Body mass index [BMI] 45.0-49.9, adult; E78.5 Hyperlipidemia, unspecified; E78.00 Pure hypercholesterolemia, unspecified; E11.65 Type 2 diabetes mellitus with hyperglycemia; E66.01 Morbid (severe) obesity due to excess calories; K05.6 Periodontal disease, unspecified; M72.9 Fibroblastic disorder, unspecified; R91.1 Solitary pulmonary nodule; Z79.84 Long term (current) use of oral hypoglycemic drugs; Z79.899 Other long term (current) drug therapy; Z91.14 Patient's other noncompliance with medication regimen
CPT/HCPCS: 10047; 10879; 27000; 50010; 50101; 50386; 50398; 50417; 62110; 62900; 70005

== ENCOUNTER → 2018-08-28 | Outpatient (CLI) | payer OTHER ==
[~2018-08-28] MED LIST changes: +AMPICILLIN IV; +HYDROCODON-ACE1 EAC7 PO; +SULBACTAM IV; +WORK RELEASE
== END ==
LOC: CAT 09:56
DX: L02.11 Cutaneous abscess of neck (principal); R59.1 Generalized enlarged lymph nodes

== ENCOUNTER → 2018-08-31 | Outpatient (CLI) | payer OTHER ==
--- NOTE | 2018-09-01 09:00 | HC ---
[facility] [place] [address] CONSULTATION Name: SANTOS SANDOVAL Room #: REG DEL Myra#: [id number] Admission: 08/31/18 ������������������ Attend Phys: Zane Monge MD Discharge: ������������������ Date of : 77 Report #: [id number] THIS REPORT FOR: //name// CC: Mason Brennan MD FAM unknown Zane Aceves MD DATE OF SERVICE: 08/31/2018 HISTORY OF PRESENT ILLNESS: The patient is a 42-year-old [place] woman, discharged on ____ with discharge diagnosis of cervical abscess due to Enterococcus faecalis, status post incision and drainage x 2 and right-sided lung abscess, undetermined etiology. The patient also is known to be diabetic and to have significant periodontal disease of incisors up jaw. She was discharged on Unasyn 12 grams IV daily through continuous infusion. She returns for followup to the Wound Care Clinic today, already seen by Dr. Monge. The patient apparently had a CT scan of the neck this past Friday, but somehow despite the correct entry of order of CT scan of the chest, this was not done. Furthermore, I was not informed of the findings. I reviewed films with radiologist and requested for future reference, that I must be called with abnormal findings on CT scan ordered by me on my patients. The patient denies having any significant neck pain, fevers or side effects, ill effects from intravenous Unasyn. MEDICATIONS: Unasyn 12 g IV daily through continuous infusion right arm PICC, p.r.n. hydrocodone, p.r.n. Tylenol. She is on oral hypoglycemic agents. PHYSICAL EXAMINATION: GENERAL: A well-developed, not toxic looking woman, wearing some extension hair locks that are falling over her neck. HEENT: Mouth reveals significant periodontal disease. I once again emphasized need to proceed to have those cleaned or ____ full dental extraction. Neck wound rather clean with no purulence, significant undermining. LUNGS: Clear to auscultation. HEART: S1, S2. No gallop or murmur. Right arm PICC site looks fine. EXTREMITIES: No edema. ABDOMEN: Benign. LABORATORY DATA: The CT scan of the neck is reviewed with Dr. Andrea Yusuf and the CT scanning reportedly showed some lung abscess. I am not sure that the radiologist that read this CT scan compared with previous CT scan. We will try to see how much of the lung we can evaluate, but obviously the CATs do not go all the way down to the right-sided lung abscess. She must obtain CT scan of [address] [address] [facility] #: REG DEL Renteria#: [id number] Admission: 08/31/18 ������������������ Attend Phys: Zane Monge MD Discharge: ������������������ Date of : 77 Report #: [id number] the chest repeated or done again today. ASSESSMENT: 1. Cervical abscess secondary to Enterococcus faecalis, status post incision and drainage x 2. 2. Right-sided lung abscess, undetermined etiology. Suspect anaerobic organism. 3. Diabetes mellitus. 4. Significant periodontal disease. 5. Anemia of chronic disease. SUGGESTIONS: Recommend CBC with differential, ESR, CRP, CMP. Advised the patient must proceed with a repeat CT scan of the chest today. I will evaluate later on with radiologist. The patient will continue Unasyn 12 g IV daily through continuous infusion. Discussed these with [facility], which will contact ____ for delivery of the medication. We will discuss situation with either Dr. Kei Brennan or Dr. Angel Aceves regarding followup during my vacation time starting on 09/05/2018. Again emphasized with the patient the need to have dental extractions. Wound care per Dr. Zane Monge. ��������������������������������������������� <ELECTRONICALLY SIGNED> ���������������������������������������� By: Ethan Guthrie MD ��������������������������������������������� 09/01/18 0900 1238 [id number] Ethan Guthrie MD /nt
== END ==
LOC: HYPER 06:30
DX: T81.49XD Infection following a procedure, other surgical site, subsequent encounter (principal); L02.11 Cutaneous abscess of neck; E78.5 Hyperlipidemia, unspecified; J45.909 Unspecified asthma, uncomplicated; Z86.711 Personal history of pulmonary embolism; Z79.84 Long term (current) use of oral hypoglycemic drugs; Z86.718 Personal history of other venous thrombosis and embolism; Z87.891 Personal history of nicotine dependence; Y83.8 Other surgical procedures as the cause of abnormal reaction of the patient, or of later complication, without mention of misadventure at the time of the procedure

== ENCOUNTER → 2018-08-31 | Outpatient (CLI) | payer OTHER | LOC: CAT 12:53 | DX: J84.10 Pulmonary fibrosis, unspecified (principal); K76.0 Fatty (change of) liver, not elsewhere classified; R16.0 Hepatomegaly, not elsewhere classified ==

== ENCOUNTER → 2018-09-07 | Outpatient (CLI) | payer OTHER ==
--- NOTE | ~2018-09-07 | HC ---
[facility] [place] [address] CONSULTATION Name: SANTOS SANDOVAL Room #: [facility].#: [id number] Admission: 09/07/18 ������������������ Attend Phys: Kei Brennan MD Discharge: ������������������ Date of : 77 Report #: [id number] THIS REPORT FOR: //name// CC: Kei Brennan [facility] physician/PCP DATE OF SERVICE: 09/07/2018 FOLLOWUP OUTPATIENT CLINIC VISIT HISTORY OF PRESENT ILLNESS: The patient returns today in followup of her right chest abscess and right posterior neck abscess diagnosed 08/12/2018. Cultures of her wounds revealed penicillin-sensitive Enterococcus. She remains on outpatient infusion Unasyn without apparent side effect. Left upper extremity PICC is functioning well. No fever, chills or sweats. No chest pain. Continues wound care to her right posterior neck wound. Surrounding tenderness has resolved. The patient also has dental caries, but is yet to be evaluated by dentistry. Her diabetes has been under reasonable control. No cough or sputum production. No chest pain. No shortness of breath. CT scan of the neck and chest was performed on 08/31/2018. This revealed bilobed cavitary nodular mass in the superior segment of the right lower lobe, unchanged from previous study of 08/12/2018. Soft tissue of the upper chest improved and awaiting laboratory studies from today. Noting sedimentation rate of 92 on 08/12/2018, also blood cultures from that time were negative. The patient has not yet undergone echocardiogram. REVIEW OF SYSTEMS: A 10-point review of systems is negative other than what is described above. PHYSICAL EXAMINATION: VITAL SIGNS: Afebrile and hemodynamically stable. Alert and cooperative. SKIN: Without rash. Left upper extremity PICC site without erythema or drainage. EYES: Without scleral icterus or petechial hemorrhages. MOUTH: Without mucositis. No oral lesions, although she does have evidence of dental caries. No submental swelling or tenderness. NECK: Supple. Posterior right neck wound with good granulation tissue present. Some induration still evident. No cellulitis. LUNGS: Clear. HEART: Regular, without murmur. ABDOMEN: Soft and nontender. IMPRESSION: 1. A 42-year-old diabetic with enterococcal soft tissue neck wound infection, now day #26 of her treatment. 2. Right lung cavitary mass, initially thought to be abscess related to the [address] [address] CONSULTATION Name: [facility] [id number] Admission: 09/07/18 ������������������ Attend Phys: Kei Brennan MD Discharge: ������������������ Date of : 77 Report #: [id number] neck abscess; however, this area has not improved despite nearly 4 weeks of IV antibiotic therapy. 3. Diabetes. 4. Obesity. 5. Dental caries. RECOMMENDATION: 1. We will continue current antibiotic program. 2. Echocardiogram. 3. Pulmonary Medicine evaluation for bronchoscopy. 4. Continue diabetic control. 5. Weight loss, diet. 6. Dental evaluation while on antibiotic therapy. 7. Follow up in 1 week. ��������������������������������������������� ���������������������������������������� By: ��������������������������������������������� 1445 0525 Kei Brennan MD /nt
[2018-09-07 12:33] VITALS: BP 133/87
[2018-09-07 14:30] VITALS: BP 133/87
--- NOTE | 2018-09-07 14:30 | NUR ---
HERE FOR F/U ID VISIT, THIS TIME WITH DR. CHRISTINA DUBON WHO IS COVERING FOR DR. RETANA. PT THOUGHT PICC LINE WAS PULLED OUT MORE THAN PREVIOUSLY AND REPORTED THAT SHE NOR HER HOME HEALTH NURSE HAVE BEEN ABLE TO GET A BLOOD RETURN FOR ABOUT A WEEK NOW. HAD VASCULAR ACCESS NURSE ASSESS. SHE CHANGED DRESSING AND CONFIRMED THAT THE EXTERNAL LENGTH IS THE SAME WHEN IT WAS PLACED (HAD TO BE PULLED OUT SOME WHEN RADIOLOGY ASSESSED PLACEMENT). THERE IS A SMALL KINK AT THE HUB BUT WITH EVEN AFTER DRESSING CHANGE AND BOTH LINES FLUSHED EASILY IT STILL HAD NO BLOOD RETURN. ORDER RECEIVED FOR CATH KATIE. INSTILLED 2ML IN EACH LINE (TOTAL OF 4ML GIVEN). AFTER DWELL TIME OF 60 MINUTES, GOOD BLOOD RETURN FROM EACH. LABS DRAWN. DR. DUBON ASSESSED PT. NEW AQUACEL PLACED INTO CERVICAL NECK WOUND. PT WILL SEE WOUND CARE ON 09/14. RETURN VISIT WITH DR. DUBON SET UP FOR THE SAME DAY. ASSISTED PT BY MAKING APPT WITH TUBING OILER, DR. GILMORE, AND SET PT UP TO SEE A PCP (SHE CURRENTLY HAS NONE), DR. MEANS FOR 11/12, FIRST AVAILABLE APPT. PT REQUESTED DR. BURROUGHS BUT HE IS NOT TAKING NEW PTS AND PT AGREEABLE TO SEE DR. MEANS. ALSO SENT ORDER TO SCHEDULING AND REQUESTED PRIOR AUTH INITIATION FROM DR. DUBON'S OFFICE FOR THE ECHO THAT IS ORDERED. ALL LAB AND ORDER TO CONTINUE AMPICILLIN FAXED TO [facility] AND UPDATE GIVEN TO PT'S NURSE, SHAHEED BLAKELY ORDERS, STATUS OF PICC, ALL NEW APPTS, ETC. PT VERBALIZED UNDERSTANDING OF PLAN. RESUMED HER AMPICILLIN CONTINUOUS INFUSION AFTER CATH KATIE DWELL TIME COMPLETED. DISMISSED IN STABLE CONDITION. SCHEDULED TO RETURN NEXT WEEK ON FRIDAY.
[2018-09-07 14:43] LABS: HEMATOCRIT 28.9 % (37.0-47.0); HEMOGLOBIN 9.3 gm/dL (12.0-15.0); MCH 23.2 pg (26.0-34.0); MCV 72.6 fL (80.0-100.0); RBC 3.99 mil/uL (4.20-5.00); RDW 18.7 % (10.5-14.5); WBC 5.2 thou/uL (4.0-11.0)
[2018-09-07 14:55] LABS: ALBUMIN 2.7 g/dL (3.4-5.0); CALCIUM 8.3 mg/dL (8.5-10.1); CREATININE 0.6 mg/dL (0.6-1.0); POTASSIUM 3.4 mmol/L (3.5-5.1); TOTAL BILIRUBIN 0.1 mg/dL (<0.1-1.0); TOTAL PROTEIN 7.3 g/dL (6.4-8.2)
== END ==
LOC: OPONC 08:11
PROVIDERS: Specialist
DX: Z45.2 Encounter for adjustment and management of vascular access device (principal); L02.11 Cutaneous abscess of neck; B95.2 Enterococcus as the cause of diseases classified elsewhere; J86.9 Pyothorax without fistula; E11.9 Type 2 diabetes mellitus without complications; E66.9 Obesity, unspecified
CPT/HCPCS: 95113

== ENCOUNTER → 2018-09-14 | Outpatient (CLI) | payer OTHER ==
--- NOTE | ~2018-09-14 | HC ---
[facility] [place] [address] CONSULTATION Name: CESAR SANDOVALMATTHEW Room #: [facility]#: [id number] Admission: 09/14/18 ������������������ Attend Phys: Kei Brennan MD Discharge: ������������������ Date of : 77 Report #: [id number] THIS REPORT FOR: //name// CC: Kei Brennan [facility] physician/PCP DATE OF SERVICE: 09/14/2018 HISTORY OF PRESENT ILLNESS: The patient returns today in followup of her right chest abscess and right posterior neck abscess diagnosed on 08/12/2018. Cultures revealed penicillin-susceptible Enterococcus. She remains on outpatient Unasyn continuous infusion. Left upper extremity PICC is functioning well. She has had no fever, chills or sweats. She has controlled her pain involving her neck. She has had no chest pain, cough or sputum production. Increasing her activity without shortness of breath. Diabetes is under good control. She has had no nausea, vomiting or diarrhea. She was supposed to undergo echocardiogram. This was rescheduled for tomorrow. She sees pulmonary medicine for outpatient consultation next week. REVIEW OF SYSTEMS: A 10-point review of systems was negative other than what is described above. PHYSICAL EXAMINATION: VITAL SIGNS: She was afebrile and hemodynamically stable. GENERAL: Alert and cooperative, sitting up in her chair. She was ambulatory. SKIN: Without rash. EXTREMITIES: Left upper extremity PICC without erythema or drainage. HEENT: Eyes without scleral icterus. Mouth without mucositis, although she does have evidence of dental caries unchanged from previous. NECK: Supple, with no thyromegaly or mass appreciated. Posterior neck wound was clean and dressed and dry. LUNGS: Clear. HEART: Regular. ABDOMEN: Soft and nontender. No significant peripheral edema. LABORATORY STUDIES: Are pending, drawn from today. From last week, 09/07/2018, creatinine was 0.6. Liver function test normal. Hemoglobin 9.3, WBC 5.2, platelet 288,000. ESR 50. IMPRESSION: 1. Enterococcal soft tissue neck infection, status post debridement, day #33. 2. Right lung cavitary mass, indeterminate in etiology. Has not improved despite 4 weeks of IV antibiotic therapy. 3. Diabetes. 4. Obesity. 5. Dental caries. [address] [address] CONSULTATION Name: [facility] [id number] Admission: 09/14/18 ������������������ Attend Phys: Kei Brennan MD Discharge: ������������������ Date of : 77 Report #: [id number] RECOMMENDATIONS: 1. We will continue her current IV antibiotic therapy. 2. Await echocardiogram. 3. Await pulmonary medicine evaluation for bronchoscopy. 4. Continue diabetic control. 5. Continue weight loss diet. 6. Dental evaluation while on antibiotic therapy. 7. Follow up in 1 week with evaluation of her workup and repeat laboratory studies. ��������������������������������������������� ���������������������������������������� By: ��������������������������������������������� 1217 0653 Kei Brennan MD /sofia
[2018-09-14 12:19] LABS: ABSOLUTE NEUTROPHILS 3.1 thou/uL (1.4-8.2); BASOPHILS 1.1 % (0.0-2.0); EOSINOPHILS 3.9 % (0.0-3.0); HEMATOCRIT 30.3 % (37.0-47.0); HEMOGLOBIN 9.2 gm/dL (12.0-15.0); LYMPHOCYTES 33.2 % (24.0-44.0); MCH 21.8 pg (26.0-34.0); MCHC 30.3 g/dL (28.0-37.0); MCV 72.2 fL (80.0-100.0); MONOCYTES 7.6 % (1.0-8.0); PLATELET COUNT 249 thou/uL (150-400); POLYS 54.2 % (36.0-66.0); RDW 18.8 % (10.5-14.5); WBC 5.7 thou/uL (4.0-11.0)
[2018-09-14 12:47] LABS: CALCIUM 8.7 mg/dL (8.5-10.1); CREATININE 0.6 mg/dL (0.6-1.0); POTASSIUM 4.2 mmol/L (3.5-5.1); TOTAL BILIRUBIN 0.3 mg/dL (<0.1-1.0); TOTAL PROTEIN 7.5 g/dL (6.4-8.2)
[2018-09-14 12:55] LABS: ANISOCYTOSIS 1+; HYPOCHROMASIA 1+; MICROCYTES 2+; PLATELET ESTIMATE NORMAL
[2018-09-14 16:24] VITALS: BP 143/83
--- NOTE | 2018-09-14 16:26 | NUR ---
IN FOR LABS, PICC LINE DRESSING CHANGE AND SEE DR. DUBON. UNABLE TO DRAW LAB FROM PICC LINE NO BLOOD RETURN. LABS DRAWN PERIPHERALLY BY BAG LOADER. DR. DBUON VISITED. NEW ORDERS WRITTEN. ECHO RESCHEDULED FOR TOMORROW AT 11 AM. PATIENT NOTIFIED. CHANGED PICC DRESSING. SITE WNL. PATIENT CAME TO US FROM WOUND CLINIC. DRESSING TO POSTERIOR NECK C/D/I. PATIENT TO RETURN NEXT FRIDAY FOR F/U VISIT. DISMISSED IN STABLE CONDITION.
== END ==
LOC: OPONC 01:01 → HYPER 01:01 → OPONC 10:14
PROVIDERS: Specialist
DX: T81.49XD Infection following a procedure, other surgical site, subsequent encounter (principal); L02.11 Cutaneous abscess of neck; E78.5 Hyperlipidemia, unspecified; J45.909 Unspecified asthma, uncomplicated; Z86.711 Personal history of pulmonary embolism; Z79.84 Long term (current) use of oral hypoglycemic drugs; Z86.718 Personal history of other venous thrombosis and embolism; Z87.891 Personal history of nicotine dependence; Y83.8 Other surgical procedures as the cause of abnormal reaction of the patient, or of later complication, without mention of misadventure at the time of the procedure
CPT/HCPCS: 91017

== ENCOUNTER → 2018-09-15 | Outpatient (CLI) | payer OTHER ==
--- NOTE | 2018-09-15 12:11 | 2DMMODE ---
[facility] [place] [place] [address] 2 D/M-MODE ECHOCARDIOGRAM [facility] [id number] ������������� Admission: 09/15/18 ������������� Attend Phys: Kei Brennan MD Discharge: ��� ������������� ��� Date of : 77 Date of Service: 09/15/18 1211 �� Report #: [id number] �������� ��������������������������������������������[id number] THIS REPORT FOR: //name// APPROVED REPORT Study performed: 09/15/2018 11:29:12 EXAM: Comprehensive 2D, Doppler, and color-flow Echocardiogram Patient Location: Out-Patient Room #: Echo lab 2 Status: routine BSA: 2.12 HR: 94 bpm BP: 140/80 mmHg Rhythm: NSR Other Information Study Quality: Adequate Indications Diabetes Enterococcal Infection. 2D Dimensions IVC: 16.00 mm Volumes Left Atrial Volume (Systole) LA ESV Index: 19.00 mL/m2 Tricuspid Valve PA Pressure: 41.00 mmHg Left Ventricle The left ventricle is normal size. There is normal LV segmental wall motion. There is normal left ventricular wall thickness. Left ventricular systolic function is normal. The left ventricular ejection fraction is within the normal range. LVEF is 55-60%. The left ventricular diastolic function is normal. Right Ventricle The right ventricle is normal size. The right ventricular systolic function is normal. [facility] [employer] [place] [address] 2 D/M-MODE ECHOCARDIOGRAM Name: SANTOS SANDOVAL [facility] [id number] ������������� Admission: 09/15/18 ������������� Attend Phys: Kei Brennan MD Discharge: ��� ������������� ��� Date of : 77 Date of Service: 09/15/18 1211 �� Report #: [id number] �������� ��������������������������������������������[id number] The left atrium size is normal. The right atrium size is normal. Aortic Valve The aortic valve is normal in structure. No aortic regurgitation is present. There is no aortic valvular stenosis. Mitral Valve The mitral valve is normal in structure. There is no mitral valve regurgitation noted. No evidence of mitral valve stenosis. Tricuspid Valve The tricuspid valve is normal in structure. There is trace tricuspid regurgitation. Estimated PAP 41 mmHg. There is mild-moderate pulmonary hypertension. Pulmonic Valve The pulmonary valve is normal in structure. There is no pulmonic valvular regurgitation. Great Vessels The aortic root is normal in size. IVC is normal in size and collapses >50% with inspiration. Pericardium There is no pericardial effusion. <Conclusion> The left ventricle is normal size. LVEF is 55-60%. The aortic valve is normal in structure. The mitral valve is normal in structure. The tricuspid valve is normal in structure. There is trace tricuspid regurgitation. Estimated PAP 41 mmHg. There is mild-moderate pulmonary hypertension. The pulmonary valve is normal in structure. There is no pericardial effusion. ��������������������������������������������� <ELECTRONICALLY SIGNED> ���������������������������������������� By: Franck Giles MD ��������������������������������������������� 09/15/18 1211 121 10 Franck Giles MD /INF
== END ==
LOC: CV 09-11 09:56
DX: I38 Endocarditis, valve unspecified (principal); I27.20 Pulmonary hypertension, unspecified; E11.9 Type 2 diabetes mellitus without complications; B95.2 Enterococcus as the cause of diseases classified elsewhere

== ENCOUNTER → 2018-09-21 | Outpatient (CLI) | payer OTHER ==
[~2018-09-21] MED LIST changes: +AUGMENTIN 875-1 EACH PO
[2018-09-21 12:00] VITALS: BP 136/86
[2018-09-21 12:02] LABS: BASOPHILS 1.5 % (0.0-2.0); HEMATOCRIT 30.3 % (37.0-47.0); HEMOGLOBIN 9.3 gm/dL (12.0-15.0); LYMPHOCYTES 30.6 % (24.0-44.0); MCH 21.6 pg (26.0-34.0); MCHC 30.5 g/dL (28.0-37.0); MCV 70.8 fL (80.0-100.0); MONOCYTES 8.2 % (1.0-8.0); PLATELET COUNT 243 thou/uL (150-400); POLYS 54.7 % (36.0-66.0); RBC 4.28 mil/uL (4.20-5.00); RDW 18.5 % (10.5-14.5); WBC 5.5 thou/uL (4.0-11.0)
[2018-09-21 12:15] LABS: ALBUMIN 2.9 g/dL (3.4-5.0); CALCIUM 8.7 mg/dL (8.5-10.1); CREATININE 0.6 mg/dL (0.6-1.0); POTASSIUM 3.3 mmol/L (3.5-5.1); TOTAL BILIRUBIN 0.4 mg/dL (<0.1-1.0); TOTAL PROTEIN 7.6 g/dL (6.4-8.2)
[2018-09-21 12:16] LABS: ANISOCYTOSIS 1+; HYPOCHROMASIA 1+; MICROCYTES 2+; PLATELET ESTIMATE NORMAL
--- NOTE | 2018-09-21 13:10 | NUR ---
HERE TO SEE DR. DUBON IN CLINIC AND FOR LABS/PICC DRESSING CARE. REPORTS DOING WELL WITH HOME INFUSIONS. [facility] SUPPLYING MED. PT HAS CONTINUOUS INFUSION PUMP AND 2 LUMEN PICC LINE. NO BLOOD RETURN FOR OVER A WEEK BUT BOTH LUMENS FLUSH EASILY. LINE HAS NOT APPEARED TO PULL OUT ANY FURTHER THAN THE ORIGINAL PLACEMENT LENGTH BUT IT IS OUT SEVERAL CM'S. LABS DRAWN PERIPHERALLY BY LAB DIRECTOR MANUFACTURING ENGINEERING TODAY. SEEN BY DR. DUBON WITH ORDERS RECEIVED TO CONTINUE UNASYN FOR ANOTHER WEEK. PICC DRESSING CHANGE DONE, SITE LOOKS GOOD. CHANGED NECK DRESSING AFTER BEING EVALUATED BY DR. DUBON. WOUND IS CLOSING NICELY BUT STILL HAS A SMALL OPENING. PACKED LIGHTLY WITH SALINE SOAKED GAUZE. DTR DOES DRESSING AT HOME EVERY COUPLE DAYS FOR PT. PT DENIED N/V/DIARRHEA, FEVER/CHILLS. STILL HAS NOT SEEN THE DENTIST BUT DID SEE DR. GILMORE. AWAITING SCHEDULED TIME FOR BRONCH. STILL HAS NEW PT APPT SET UP WITH DR. MEANS IN OCT. TO ESTABLISH A RELATIONSHIP WITH A PCP. PT ENCOURAGED TO GET IN TO SEE THE DENTIST SARY AND F/U WITH DR. GILMORE'S OFFICE TO SET UP BRONCH. PLAN IS TO F/U AT THIS POINT WITH DR. RETANA. DISMISSED IN STABLE CONDITION.
--- NOTE | 2018-09-21 15:56 | NUR ---
SPOKE WITH DR. RETANA WHO STATES HE SPOKE WITH DR. DUBON ABOUT CONTINUING TO CARE FOR THIS PATIENT. PT NOTIFIED AND SET UP FOR RETURN VISIT HERE ON 09/28. ORDERS FAXED TO [facility] AND SPOKE WITH ALFONSO REGARDING CONTINUATION OF UNASYM PER PICC LINE. PT ENCOURAGED AGAIN TO CALL DR. GILMORE'S OFFICE TO GET BRONCH SCHEDULED AND TO GET IN TO SEE HER DENTIST SARY.
--- NOTE | 2018-09-28 11:54 | HC ---
[facility] [place] [address] CONSULTATION Name: SANTOS SANDOVAL Room #: [facility].#: [id number] Admission: 09/21/18 Attend Phys: Kei Brennan MD Discharge: Date of : 77 Report #: [id number] THIS REPORT FOR: //name// CC: Kei Fox DATE OF SERVICE: 09/21/2018 FOLLOWUP CONSULTATION IN THE OUTPATIENT CLINIC. HISTORY OF PRESENT ILLNESS: The patient returns today in followup of her suspected right chest abscess and right posterior neck abscess, diagnosed 08/12/2018. Cultures of the wound grew methicillin susceptible Enterococcus. She remains on Unasyn via a left upper extremity PICC. Followup CT scan showed no improvement in the right chest lesion. She then was seen by Pulmonary Medicine this past week, who is scheduling her for a bronchoscopy. The posterior neck wound continues to heal. Diabetes is under good control. She has not followed up with dentistry to evaluate her dental caries. REVIEW OF SYSTEMS: Her PICC has been functioning well. She has had no fever, chills or sweats. There has been no chest pain. No cough or sputum production. No hemoptysis. No dyspnea on exertion. No GI or complaints. PHYSICAL EXAMINATION: VITAL SIGNS: Afebrile and hemodynamically stable. EXTREMITIES: Left upper extremity PICC site without drainage. Posterior neck wound had good granulation tissue with no surrounding erythema. CHEST: Clear. HEART: Regular. ABDOMEN: Soft and nontender. Mouth with dental caries unchanged. LABORATORY STUDIES: Echocardiogram showed no valvular abnormalities. Hemoglobin is 9.3, white count 5.5, creatinine 0.6. Liver function test is normal. IMPRESSION: 1. Enterococcal soft tissue neck infection, status post debridement, now day #40. 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 Has not improved after one month of IV therapy. She is to undergo bronchoscopy in the near future. 2. Diabetes. 3. Obesity. 4. Dental caries. PLAN: 1. Continue IV antibiotic therapy. The patient does need to get in to see her [facility] [address] [place] [address] CONSULTATION Name: [facility] Room #: [facility] DEL Renteria#: [id number] Admission: 09/21/18 Attend Phys: eKi Brennan MD Discharge: Date of : 77 Report #: [id number] dentist while she is on her antibiotics. This was reinforced today. We will await findings from her bronchoscopy. Continue diabetic control. 2. Continue weight loss diet. 3. Follow up in [address] Guthrie to continue her treatment plan. <ELECTRONICALLY SIGNED> By: Kei Brennan MD 09/28/18 1154 1315 2134 Kei Brennan MD /nt
== END ==
LOC: OPONC 01:00
PROVIDERS: Specialist
DX: L02.11 Cutaneous abscess of neck (principal); E11.9 Type 2 diabetes mellitus without complications; E66.9 Obesity, unspecified; K02.9 Dental caries, unspecified
CPT/HCPCS: 91018

== ENCOUNTER 2018-09-24 10:47 | Outpatient (CLI) | payer OTHER ==
[~2018-09-24 10:47] MED LIST changes: -AUGMENTIN 875-1 EACH PO
[2018-09-24 11:20] VITALS: BP 138/81
[2018-09-28] MEDS ORDERED: AUGMENTIN 875-1 EACH PO (12:06)
== END 2018-09-24 14:37 | disposition home or self-care (01) ==
LOC: TBA 10:47 → CATH 10:47 → TBA 10:48 → CATH 14:37
DX: J98.4 Other disorders of lung (principal); R04.89 Hemorrhage from other sites in respiratory passages; E11.9 Type 2 diabetes mellitus without complications; Z79.899 Other long term (current) drug therapy; Z98.890 Other specified postprocedural states
CPT/HCPCS: 50010; 62110; 62900; 70005

== ENCOUNTER → 2018-09-28 | Outpatient (CLI) | payer OTHER ==
[~2018-09-28] MED LIST changes: +AUGMENTIN 875-1 EACH PO
--- NOTE | ~2018-09-28 | HC ---
[facility] [place] [address] CONSULTATION Name: SANTOS SANDOVAL Room #: FLYNN Delgado.#: [id number] Admission: 09/28/18 Attend Phys: Shawn Schilling MD Discharge: Date of : 77 Report #: [id number] THIS REPORT FOR: //name// CC: FRAN Schilling DATE OF SERVICE: 09/28/2018 CHIEF COMPLAINT: Followup enterococcal neck abscess and right chest mass. HISTORY OF PRESENT ILLNESS: The patient returns now 6 weeks complete antibiotic therapy with Unasyn for extensive right posterior neck abscess due to penicillin susceptible Enterococcus. Her left upper extremity PICC has been functioning well. No fever, chills or sweats. No cough or sputum production. Pain in her neck has resolved. Minimal drainage. Very small wound now. Diabetes, under good control. No dyspnea. No nausea, vomiting or diarrhea. Echocardiogram was unremarkable. Bronchoscopy done this past week, was unremarkable. Cultures are negative so far including virus and aerobic and anaerobic bacteria, AFB and fungus. Review of the bronchoscopy note showed orifice of the superior segment in the right lower lobe was swollen with no other lesion identified. There was some mucous plugging. Cytology and micro brush obtained and results are currently pending. She is to see Dentistry this week. REVIEW OF SYSTEMS: Ten-point review was negative other than what is described above. PHYSICAL EXAMINATION: VITAL SIGNS: Afebrile and hemodynamically stable. EXTREMITIES: Left upper extremity PICC without drainage or erythema. Right posterior neck wound was very small with clean granulation tissue. No surrounding cellulitis. CHEST: Clear. HEART: Regular, without murmur. ABDOMEN: Soft and nontender. OROPHARYNX: No change in her dental caries. LABORATORY STUDIES: Cultures as noted above. WBC 5.9. Hemoglobin 9.7, creatinine 0.6, potassium 3.8. IMPRESSION: 1. Enterococcal soft tissue neck infection, status post debridement, now day #47. 2. Right lung cavitary mass, status post bronchoscopy, awaiting cultures and [facility] [address] [place] [address] CONSULTATION Name: [facility] Room #: [facility].#: [id number] Admission: 09/28/18 Attend Phys: Shawn Schilling MD Discharge: Date of : 77 Report #: [id number] cytology. 3. Diabetes. 4. Obesity. 5. Dental caries. RECOMMENDATION: We will finish her course of IV antibiotic therapy today. We will change to Augmentin 875 mg b.i.d. for the next 2 weeks while she continues with her dental evaluation along with awaiting for her culture results from bronchoscopy. We will see her back in 10-14 days to determine her total length of therapy. By: 1202 2208 Kei Brennan MD /nt
[2018-09-28 10:45] LABS: ABSOLUTE NEUTROPHILS 3.1 thou/uL (1.4-8.2); BASOPHILS 1.1 % (0.0-2.0); EOSINOPHILS 5.4 % (0.0-3.0); HEMATOCRIT 31.8 % (37.0-47.0); HEMOGLOBIN 9.7 gm/dL (12.0-15.0); LYMPHOCYTES 33.1 % (24.0-44.0); MCH 21.4 pg (26.0-34.0); MCHC 30.5 g/dL (28.0-37.0); MCV 70.1 fL (80.0-100.0); MONOCYTES 7.9 % (1.0-8.0); PLATELET COUNT 289 thou/uL (150-400); POLYS 52.5 % (36.0-66.0); RBC 4.54 mil/uL (4.20-5.00); RDW 19.1 % (10.5-14.5); WBC 5.9 thou/uL (4.0-11.0)
[2018-09-28 11:05] LABS: ALBUMIN 3.1 g/dL (3.4-5.0); CALCIUM 9.1 mg/dL (8.5-10.1); CREATININE 0.6 mg/dL (0.6-1.0); POTASSIUM 3.8 mmol/L (3.5-5.1); TOTAL BILIRUBIN 0.2 mg/dL (<0.1-1.0); TOTAL PROTEIN 8.1 g/dL (6.4-8.2)
[2018-09-28 11:41] LABS: ANISOCYTOSIS 1+; HYPOCHROMASIA 1+; MICROCYTES 2+; PLATELET ESTIMATE NORMAL
[2018-09-28 12:00] VITALS: BP 135/80
--- NOTE | 2018-09-28 12:15 | NUR ---
PT CAME TO CLINIC FROM THE WOUND CARE CLINIC WHERE SHE HAD JUST SEEN DR. MENDOZA AND HAD DRESSING ON NECK CHANGED. PICC SITE LOOKS GOOD. CHANGED DRESSING WHEN PT FIRST ARRIVED. LABS DRAWN PERIPHERALLY BY ROADWAY TECHNICIAN. PT REPORTS DOING WELL, FEELING WELL--FEELS NORMAL. HAD BRONCH DONE. PLANS TO GO BY THE DENTIST OFFICE TODAY TO PAY AN OUTSTANDING BILL THEN MAKE AN APPT. DR. DUBON ROUNDED, ORDERS RECEIVED TO PULL PICC AND FOR PT TO START ON ORAL AUGMENTIN 875MG BID. LINE PULLED WITHOUT INCIDENT. SCRIPT GIVEN TO PT WITH INSTRUCTIONS TO BEGIN TONITE. PT SCHEDULED TO RETURN HERE TO SEE DR. DUBON AGAIN ON 10/12 JUST BEFORE HER APPT WITH DR. MENDOZA. VERBALIZED UNDERSTANDING OF PLAN. DISMISSED IN STABLE CONDITION.
== END ==
LOC: HYPER 06:54
PROVIDERS: Specialist
DX: T81.49XD Infection following a procedure, other surgical site, subsequent encounter (principal); L02.11 Cutaneous abscess of neck; E11.9 Type 2 diabetes mellitus without complications; E78.5 Hyperlipidemia, unspecified; J45.909 Unspecified asthma, uncomplicated; Z79.84 Long term (current) use of oral hypoglycemic drugs; Z86.718 Personal history of other venous thrombosis and embolism; Z86.711 Personal history of pulmonary embolism; Z87.891 Personal history of nicotine dependence; Y83.8 Other surgical procedures as the cause of abnormal reaction of the patient, or of later complication, without mention of misadventure at the time of the procedure
CPT/HCPCS: 91018

== ENCOUNTER → 2018-10-12 | Outpatient (CLI) | payer OTHER ==
[~2018-10-12] MED LIST changes: +CIPRO500 MG PO
--- NOTE | ~2018-10-12 | HC ---
[facility] [place] [address] CONSULTATION Name: SANTOS SANDOVAL Room #: FLYNN [facility].#: [id number] Admission: 10/12/18 Attend Phys: Shawn Schilling MD Discharge: Date of : 77 Report #: [id number] THIS REPORT FOR: //name// CC: Kei Schilling DATE OF SERVICE: 10/12/2018 HISTORY OF PRESENT ILLNESS: Follow up enterococcal neck abscess and right chest mass. The patient returns now 8 weeks following completion of her right neck abscess due to penicillin susceptible Enterococcus. She completed her course of Augmentin. Dental evaluation found no dental caries or evidence of apical abscesses. She underwent dental cleaning and was scheduled to follow up in several months. She has had no fever, chills or sweats. No cough or sputum production. Overall, she feels well. She underwent bronchoscopy. Cultures revealed 4+ pseudomonas from the right lower lobe region. This was the area that was abnormal on bronchoscopy visualization. The other culture was no growth. She has had no pleuritic chest pain. No sputum production. REVIEW OF SYSTEMS: Ten-point review was negative other than what is described above. PHYSICAL EXAMINATION: VITAL SIGNS: Afebrile and hemodynamically stable. GENERAL: She is alert and cooperative. She was ambulatory. Neck wound was very small clean, no surrounding erythema. CHEST: Clear. HEART: Regular, without murmur. ABDOMEN: Soft. EXTREMITIES: Without edema. MOUTH: With improvement in her gums and teeth. LABORATORY STUDIES: Pending. IMPRESSION: 1. The patient has completed her course of therapy for enterococcal soft tissue infection of her neck. 2. Right lung cavitary mass, now with Pseudomonas aeruginosa growth high numbers from culture in the right lower lobe. Despite being asymptomatic, I am concerned that this may be the etiology of her chest infection. It was noted that when she came in initially that she was having minimal respiratory complaints. 3. Diabetes. [facility] [address] [place] [address] CONSULTATION Name: [facility] Room #: [facility].#: [id number] Admission: 10/12/18 Attend Phys: Shawn Schilling MD Discharge: Date of : 77 Report #: [id number] 4. Obesity. RECOMMENDATIONS: We will continue antibiotic coverage with ciprofloxacin. I discussed potential side effects. She has a 2-week supply of 750 mg b.i.d. She has one refill with this. We will get an x-ray again today and follow her over time. If this right lower lobe lesion does not improve, we will need further sampling. By: 164 099 Kei Brennan MD /nt
[2018-10-12 16:05] VITALS: BP 132/78
[2018-10-12 16:31] LABS: HEMATOCRIT 33.2 % (37.0-47.0); HEMOGLOBIN 10.1 gm/dL (12.0-15.0); MCH 21.6 pg (26.0-34.0); MCHC 30.4 g/dL (28.0-37.0); MCV 71.1 fL (80.0-100.0); RBC 4.67 mil/uL (4.20-5.00); RDW 20.2 % (10.5-14.5); WBC 6.6 thou/uL (4.0-11.0)
[2018-10-12 16:47] LABS: ALBUMIN 2.9 g/dL (3.4-5.0); CALCIUM 8.5 mg/dL (8.5-10.1); CREATININE 0.8 mg/dL (0.6-1.0); TOTAL BILIRUBIN 0.3 mg/dL (<0.1-1.0); TOTAL PROTEIN 7.6 g/dL (6.4-8.2)
[2018-10-12 16:51] LABS: POTASSIUM 3.6 mmol/L (3.5-5.1)
--- NOTE | 2018-10-12 16:54 | NUR ---
IN FOR CLINIC VISIT WITH DR. DUBON. LABS DRAWN PER STEMHOLE BORER AND TOPPER. DR. DUBON VISITED. PATIENT CAME TO US FROM WOUND CLINIC. BANDAID INTACT TO NECK. NEW ORDERS WRITTEN. PRESCRIPTION GIVEN FOR CIPRO. PLAN IS TO RETURN TO CLINIC IN 2 WEEKS FOR F/U VISIT AND LAB. CXR DONE. DISMISSED IN STABLE CONDITION.
== END ==
LOC: HYPER 06:43
PROVIDERS: Specialist
DX: T81.49XD Infection following a procedure, other surgical site, subsequent encounter (principal); E11.622 Type 2 diabetes mellitus with other skin ulcer; L98.491 Non-pressure chronic ulcer of skin of other sites limited to breakdown of skin; L02.11 Cutaneous abscess of neck; E78.5 Hyperlipidemia, unspecified; J45.909 Unspecified asthma, uncomplicated; Z86.718 Personal history of other venous thrombosis and embolism; Z79.84 Long term (current) use of oral hypoglycemic drugs; Z87.891 Personal history of nicotine dependence; Z86.711 Personal history of pulmonary embolism; Y83.8 Other surgical procedures as the cause of abnormal reaction of the patient, or of later complication, without mention of misadventure at the time of the procedure
CPT/HCPCS: 91016

== ENCOUNTER → 2018-10-26 | Outpatient (CLI) | payer OTHER ==
[2018-10-26 12:47] LABS: HEMATOCRIT 33.3 % (37.0-47.0); HEMOGLOBIN 10.1 gm/dL (12.0-15.0); MCH 21.4 pg (26.0-34.0); MCHC 30.3 g/dL (28.0-37.0); MCV 70.8 fL (80.0-100.0); RBC 4.71 mil/uL (4.20-5.00); RDW 19.5 % (10.5-14.5); WBC 5.8 thou/uL (4.0-11.0)
[2018-10-26 12:55] LABS: CALCIUM 9.2 mg/dL (8.5-10.1); CREATININE 0.7 mg/dL (0.6-1.0); POTASSIUM 3.7 mmol/L (3.5-5.1)
--- NOTE | 2018-10-26 13:31 | NUR ---
IN FOR CLINIC VISIT WITH DR. DUBON. LABS DRAWN PER FUNERAL DRIVER. PATIENT STATED HAS BEEN TAKING CIPRO ONLY ONCE A DAY IT IS CAUSING DIARRHEA. PRESCRIPTION WAS FOR CIPRO BID. DR. DUBON NOTIFIED. NEW ORDERS WRITTEN. NECK INCISION HEALED. CXR DONE FOR RLL LESION PER ORDERS. TO RETURN IN 2 WEEKS FOR NEXT CLINIC VISIT AND LAB. DR. DUBON ENCOURAGED PATIENT TO TAKE CIPRO BID AND TREAT DIARRHEA WITH IMMODIUM AND A PROBIOTIC. DISMISSED IN GOOD CONDITION.
--- NOTE | 2018-10-27 19:06 | HC ---
[facility] [place] [address] [facility]#: [id number] Admission: 10/26/18 ������������������ Attend Phys: Kei Brennan MD Discharge: ������������������ Date of : 77 Report #: [id number] THIS REPORT FOR: //name// CC: Kei Fox MD OUTPATIENT INFECTIOUS DISEASE FOLLOWUP REASON FOR CONSULTATION: Evaluation regarding Pseudomonas respiratory tract infection. HISTORY OF PRESENT ILLNESS: The patient returns in followup of her right chest mass with bronchoscopy culture positive for pansensitive Pseudomonas aeruginosa. Two weeks ago, she was placed on ciprofloxacin 750 mg p.o. b.i.d. She only took it once a day because she was having loose stools. No fever, chills or sweats. She feels well other than the loose stools. She is having 2-3 a day. No fever, chills or sweats. No blood in her stool. No nausea, vomiting or abdominal pain. Her right neck wound has healed. Her previous right neck abscess with wound debridement has healed. No other new issues. PHYSICAL EXAMINATION: VITAL SIGNS: Afebrile and hemodynamically stable. GENERAL: Alert and cooperative. She was ambulatory. Neck wound was healed. CHEST: Clear. HEART: Regular, without murmur. ABDOMEN: Soft and nontender. EXTREMITIES: Without edema. Mouth without mucositis. LABORATORY STUDIES: Pending. IMPRESSION: 1. Right lung cavitary mass with Pseudomonas growth. Unclear if this was secondary infection involving this mass or whether it is a primary issue. It was apparent that the patient was having no pulmonary symptoms to support a pseudomonal invasive infection. Therefore, planned on treating her with ciprofloxacin for several weeks to see if we can have any impact on this region. If not, she will need further intervention for tissue sampling. The patient failed to take her antibiotic as prescribed. She has, for the last 2 weeks, only been on 1 dose a day. She has normal renal function. 2. Enterococcal abscess, right posterior neck soft tissues, resolved. 3. Diabetes. 4. Obesity. 5. Antibiotic-associated diarrhea. [facility] [address] [place] [address] [facility] [id number] Admission: 10/26/18 ������������������ Attend Phys: Kei Brennan MD Discharge: ������������������ Date of : 77 Report #: [id number] RECOMMENDATIONS: We will plan on repeating laboratory studies today. I was planning on doing a chest x-ray at 4 weeks, but we will get one now and see if there is any improvement in this region of her lung. We will then reevaluate again in 2 weeks. I am concerned that if she continues with once daily dosing, will be having issues with potential drug resistance. ��������������������������������������������� <ELECTRONICALLY SIGNED> ���������������������������������������� By: Kei Brennan MD ��������������������������������������������� 10/27/18 1906 1234 2340 Kei Brennan MD /sofia
== END ==
LOC: OPONC 11:57
PROVIDERS: Specialist
DX: R91.8 Other nonspecific abnormal finding of lung field (principal); B96.5 Pseudomonas (aeruginosa) (mallei) (pseudomallei) as the cause of diseases classified elsewhere; L02.11 Cutaneous abscess of neck; B95.2 Enterococcus as the cause of diseases classified elsewhere; E11.9 Type 2 diabetes mellitus without complications; E66.9 Obesity, unspecified; K52.1 Toxic gastroenteritis and colitis
CPT/HCPCS: 91016

== ENCOUNTER → 2018-11-09 | Outpatient (CLI) | payer OTHER ==
--- NOTE | ~2018-11-09 | HC ---
[facility] [place] [address] CONSULTATION Name: SANTOS SANDOVAL Room #: [facility]#: [id number] Admission: 11/09/18 Attend Phys: Kei Brennan MD Discharge: Date of : 77 Report #: [id number] THIS REPORT FOR: //name// CC: Kei Fox MD OUTPATIENT FOLLOWUP INFECTIOUS DISEASE VISIT HISTORY OF PRESENT ILLNESS: The patient returns in followup of her right chest mass. Recent bronchoscopy was positive for pansensitive Pseudomonas aeruginosa. Although, trial of ciprofloxacin was started. The patient did not tolerate this and discontinued her therapy due to GI upset. She was seen again 2 weeks ago without any infection related symptoms. It was therefore recommended that we withhold any further treatment and observe for another several weeks. She comes back in now. No fever, chills or sweats. No cough or sputum production. No chest pain. No weight loss. Still has a little bit of soft tissue stiffness in her right neck where she had her abscess debrided. The tissues have closed. She has had no other GI or complaints. She was afebrile and hemodynamically stable. Moderately obese. No acute distress. EYES: Without scleral icterus. MOUTH: Without mucositis. NECK: Incisional wound was well healed with scarring. There was no fluctuance. There was no tenderness. There was no erythema. She had full range of motion in her neck. LUNGS: Clear. HEART: Regular, without murmur. ABDOMEN: Obese, soft, nontender, no hepatosplenomegaly or mass. LABORATORY STUDIES: Hemoglobin is 10.3, WBC 7, platelet count 275,000. Sedimentation rate is pending. Chest x-ray shows no change in the right perihilar mass from previous imaging studies 6 weeks [address] Her last CT scan of the chest was on 08/31/2018, which revealed a bilobed cavitary nodular mass in the superior segment of the right lower lobe posterior to the right inferior hilum. This was unchanged from the previous scan of 08/12/2018. The patient has a right lung cavitary mass without any lieutenant governor the last 3 months. This is not acting like a pseudomonas infection. The previous bronchoscopy performed on 09/24/2018 has revealed negative fungus culture and so far negative mycobacterial culture. I have discussed the case again with Dr. Beaulieu, who will plan on doing a landmark type of CT scan imaging along with PET scanning followed by targeted bronchoscopy procedure for repeat biopsy and for pathology and culture. We discussed this with the patient who is in agreement. She will contact me if any change in condition in the meantime. I will then see her back after this [address] [address] [facility] #: FLYNN Renteria#: [id number] Admission: 11/09/18 Attend Phys: Kei Brennan MD Discharge: Date of : 77 Report #: [id number] procedure. IMPRESSION: 1. Enterococcal right neck abscess, resolved. 2. Diabetes. 3. Obesity. PLAN: 1. Arrange CT scan of the chest with PET scan in addition. 2. Pulmonary service to arrange targeted bronchoscopy for repeat biopsy and cultures for AFB, fungus, microbacteria along with pathology. 3. The patient to follow up after bronchoscopy. By: 1406 0017 Kei Brennan MD /nt
[2018-11-09 12:36] VITALS: BP 136/78
[2018-11-09 13:04] LABS: HEMOGLOBIN 10.3 gm/dL (12.0-15.0); MCH 20.7 pg (26.0-34.0); RBC 4.97 mil/uL (4.20-5.00)
[2018-11-09 13:08] LABS: HEMATOCRIT 34.7 % (37.0-47.0); MCHC 29.7 g/dL (28.0-37.0); MCV 69.7 fL (80.0-100.0)
--- NOTE | 2018-11-09 17:18 | NUR ---
IN FOR CLINIC VISIT WITH DR. CHRISTINA DUBON AND LABS. LABS DRAWN PER HYDRO ELECTRIC STATION OPERATOR. CXR DONE. PATIENT DENIED PAIN, N/V, FEVER/CHILLS, DIARRHEA. DR. DUBON VISITED. DR. DUBON CALLED AND SPOKE WITH DR. MENDEZ REGARDING LUNG MASS. NEW ORDERS WRITTEN TO CONSULT DR. MENDEZ. CALLED OFFICE AND SPOKE WITH CUCA, WHOM STATED DR. WHITESIDE IS AWARE AND WILL ADDRESS NEW ORDER TOMORROW. PLAN IS FOR PATIENT TO HAVE A CT/PET SCANS OF LUNGS, AND A BRONCHCOSCOPY PER DR. MENDEZ AND THEN CALL US WHEN THESE ARE COMPLETED FOR FOLLOWUP VISIT WITH DR. DUBON. DISMISSED IN GOOD CONDITION.
== END ==
LOC: OPONC 10-26 08:15
PROVIDERS: Specialist
DX: R22.2 Localized swelling, mass and lump, trunk (principal); E11.9 Type 2 diabetes mellitus without complications; E66.9 Obesity, unspecified
CPT/HCPCS: 91018

== ENCOUNTER → 2018-12-21 | Outpatient (CLI) | payer OTHER | LOC: CAT 10:13 | DX: J98.4 Other disorders of lung (principal) ==

== ENCOUNTER → 2019-08-25 | Outpatient (CLI) | payer OTHER ==
[~2019-08-25] MED LIST changes: +ASA81BEC PO; +ELIQUIS5 MG PO; +GLUCOTROL5 MG PO; +JARDIANCE10 MG PO; +KEPPRA 500 MG500 MG PO; +LIPITOR40 MG PO; +PROAIR HFA8.5 GM INH; +TYLENOL 8 HOUR650 MG PO; +ZESTRIL5 MG PO
== END ==
LOC: PET 07-28 08:55
PROVIDERS: ATTEND Pediatrics
DX: J98.4 Other disorders of lung (principal)

== ENCOUNTER → 2019-10-05 | Outpatient (CLI) | payer OTHER ==
[~2019-10-05] MED LIST changes: -ASA81BEC PO; -ELIQUIS5 MG PO; -GLUCOTROL5 MG PO; -JARDIANCE10 MG PO; -KEPPRA 500 MG500 MG PO; -LIPITOR40 MG PO; -PROAIR HFA8.5 GM INH; -TYLENOL 8 HOUR650 MG PO; -ZESTRIL5 MG PO
== END ==
LOC: CAT 13:39
PROVIDERS: ATTEND Pediatrics
DX: J84.10 Pulmonary fibrosis, unspecified (principal); J98.4 Other disorders of lung; I51.7 Cardiomegaly; I70.0 Atherosclerosis of aorta; I31.3 Pericardial effusion (noninflammatory); I25.10 Atherosclerotic heart disease of native coronary artery without angina pectoris

== ENCOUNTER → 2019-10-08 | Outpatient (CLI) | payer OTHER ==
[~2019-10-08] MED LIST changes: +ASA81BEC PO; +ELIQUIS5 MG PO; +GLUCOTROL5 MG PO; +JARDIANCE10 MG PO; +KEPPRA 500 MG500 MG PO; +LIPITOR40 MG PO; +PROAIR HFA8.5 GM INH; +TYLENOL 8 HOUR650 MG PO; +ZESTRIL5 MG PO
== END ==
LOC: LAB 08:00
PROVIDERS: ATTEND Pediatrics
DX: Z01.812 Encounter for preprocedural laboratory examination (principal); Z20.828 Contact with and (suspected) exposure to other viral communicable diseases

== ENCOUNTER → 2019-10-13 | Outpatient (CLI) | payer OTHER ==
[~2019-10-13] VITALS: Ht 157.5 cm; Wt 117.0 kg
[2019-10-13 07:40] VITALS: BP 147/88
--- NOTE | 2019-10-13 08:37 | EKG ---
[facility] [place] [address] ELECTROCARDIOGRAM REPORT Name: SANTOS SANDOVAL Room #: [facility].#: [id number] Admission: 10/13/19 Attend Phys: Alec Beaulieu MD Discharge: Date of : 77 Report #: [id number] THIS REPORT FOR: cc: Deborah Fox MD, Nora P. MD Lundgren,Scotty Sheppard MD [facility] ~ THIS REPORT FOR: //name// [facility] Test Date: 2019-10-13 Test Time: 07:10:38 Pat Name: SANTOS SANDOVAL Department: Room: Gender: F Tube Heater: ZAK : 1975 Requested By: Alec Beaulieu Order Number: [id number] MD: Scotty Martinez Measurements Intervals Export Rate: 82 P: 40 KS: 146 QRS: 11 QRSD: 79 T: 27 QT: 385 QTc: 450 Interpretive Statements Sinus rhythm Normal tracing No previous ECG available for comparison Electronically Signed On 10-13-2019 8:37:01 CDT by Scotty Martinez [email or web address] <ELECTRONICALLY SIGNED> By: Scotty Martinez MD, [facility] 10/13/19 0837 0710 9 Scotty Martinez MD, [facility] /EPI
--- NOTE | 2019-10-14 16:06 | PATH ---
[facility] [address] [place] [address] PATHOLOGY RPT [facility]ED[facility] #: REG DEL Delgado.#: [id number] Admission: 10/13/19 Date of : 77 Discharge: Report #: [id number] Path Case #: [id number] Note [facility] Accession Number: [id number] TESTS RESULT FLAG UNITS REF RANGE LAB Clinician Provided Cytology Information No. of containers..01 Other (Miscellaneous) Source: BRONC BRUSH TIP RLL DIAGNOSIS: 02 BRONC BRUSH TIP RLL NEGATIVE FOR MALIGNANT EPITHELIAL CELLS. REACTIVE BRONCHIAL CELLS ARE PRESENT. ABUNDANT RED BLOOD CELLS ARE PRESENT. PULMONARY MACROPHAGES (DUST CELLS) ARE PRESENT. Pathologist ICD10: 02 R91.8 Signed out by: Jamilah Birch MD, Pathologist NPI- [id number] Performed by: Rozina Sol, Alteration Inspector ([facility]) Gross description: 01 1 MANDO /DEVIN 10/13/2019 1709 Local FLAG LEGEND: L-Low Normal,H-High Normal,LL-Alert Low,HH-Alert High <-Panic Low,>-Panic High,A-Abnormal,AA-Critical Abnormal Performed at: [address] [place] [address] Lucho Juares MD, [address] [address] Jamilah Birch MD, Specimen Comment: A courtesy copy of this report has been sent to [phone] Specimen Comment: [phone] Specimen Comment: Report sent to / DR MEANS Specimen Comment: A duplicate report has been generated due to demographic updates. Performed at: [address], [place], [place] [id number] [address] [address] PATHOLOGY RPT PROCEDURE Name: [facility] Room #: REG DEL Myra#: [id number] Admission: 10/13/19 Date of : 77 Discharge: Report #: [id number] Path Case #: [id number] MD Lucho Juares MD Phone: [phone]
--- NOTE | 2019-10-14 16:06 | PATH ---
[facility] [address] [place] [address] PATHOLOGY RPT PROCEDURE Name: LORISANTOS Room #: REG DEL Best.R.#: [id number] Admission: 10/13/19 Date of : 77 Discharge: Report #: [id number] Path Case #: [id number] [facility] Accession Number: [id number] . 01 Material submitted: . lung - TBNA GENCUT RLL BIOPSY. Modifiers: right . 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 - Strips of benign bronchial mucosal fragments showing no evidence of dysplasia or malignancy. - Abundant blood and fibrin present within the background. . (IUV:mml; 10/14/2019) QL 10/14/2019 1145 Local . 02 Comment: One unoriented fragment of metaplastic squamous epithelium with mitotic figures is noted. There is no evidence of nuclear pleomorphism identified. The fragment appears two-dimensional (flat) and is noted in association with inflammatory cells. Therefore, findings are favored to be reactive. Much of the sample (90%)is comprised of blood, as well as benign bronchial mucosal fragments with ciliated columnar epithelium, mild chronic inflammation within the underlying lamina propria as well as its muscular layer. There is no evidence of malignancy within the examined tissue. The concurrent cytology, [id number], [id number], and [id number] show no malignant epithelial cells as well. Please refer to separate reports for complete details. . (IUV:mml; 10/14/2019) . 02 Electronically signed: . Jamilah Birch MD, Pathologist NPI- [id number] . 01 Gross description: . The specimen is received in formalin, labeled "Santos Roland", "TBNA GenCut RLL biopsy". Received are multiple needle core and needle core fragments of hemorrhagic appearing dark red-moreira soft tissue, measuring 1.0 x 1.0 x 0.2 cm in aggregate dimensions. The specimen is filtered and entirely submitted in cassettes A1 to A3.([facility]; 10/13/2019) GORDO/MANDY 10/14/2019 1130 Local . 02 Pathologist provided ICD-10: R91.[address] [address] PATHOLOGY RPT PROCEDURE Name: SANTOS ROLAND Room #: FLYNN Renteria#: [id number] Admission: 10/13/19 Date of : 77 Discharge: Report #: [id number] Path Case #: [id number] . 02 CPT . [id number] Specimen Comment: A courtesy copy of this report has been sent to [phone] Specimen Comment: [phone] Specimen Comment: Report sent to / DR MEANS Performed at: [address], [place] [id number] MD Lucho Juares MD Phone: [phone] Performed at: [address] [id number] MD Jamilah Birch MD Phone: [phone]
--- NOTE | 2019-10-14 16:06 | PATH ---
[facility] [address] [place] [address] PATHOLOGY RPT [facility] #: FLYNN Delgado.#: [id number] Admission: 10/13/19 Date of : 77 Discharge: Report #: [id number] Path Case #: [id number] Note [facility] Accession Number: [id number] TESTS RESULT FLAG UNITS REF RANGE LAB Clinician Provided Cytology Information No. of containers..01 Slide Source: BRONCH BRUSHING RLL DIAGNOSIS: 02 BRONCH BRUSHING RLL NEGATIVE FOR MALIGNANT EPITHELIAL CELLS. REACTIVE BRONCHIAL CELLS ARE PRESENT. ABUNDANT RED BLOOD CELLS ARE PRESENT. PULMONARY MACROPHAGES (DUST CELLS) ARE PRESENT. Pathologist ICD10: 02 R91.8 Signed out by: Jamilah Birch MD, Pathologist NPI- [id number] Performed by: Tabatha Sol, Sole Rougher ([facility]) Gross description: 01 4 FIXED /LCS 10/13/2019 1707 Local FLAG LEGEND: L-Low Normal,H-High Normal,LL-Alert Low,HH-Alert High <-Panic Low,>-Panic High,A-Abnormal,AA-Critical Abnormal Performed at: [address] [facility] [address] [place] [address] Lucho Juares MD, [address] [address] Jamilah Birch MD, Specimen Comment: A courtesy copy of this report has been sent to [phone] Specimen Comment: [phone] Specimen Comment: Report sent to / DR MEANS Specimen Comment: A duplicate report has been generated due to demographic updates. Performed at: [address], [place], [place] [id number] [address] [address] PATHOLOGY RPT PROCED[facility] #: FLYNN MATHIS Danny.#: [id number] Admission: 10/13/19 Date of : 77 Discharge: Report #: [id number] Path Case #: [id number] MD Lucho Juares MD Phone: [phone]
--- NOTE | 2019-10-15 09:07 | PATH ---
[facility] [address] [place] [address] PATHOLOGY RPT PROCED[facility] #: REG DEL Delgado.#: [id number] Admission: 10/13/19 Date of : 77 Discharge: Report #: [id number] Path Case #: [id number] Note [facility] Accession Number: [id number] TESTS RESULT FLAG UNITS REF RANGE LAB Clinician Provided Cytology Information No. of containers..01 Other (Miscellaneous) Source: BRONCH WASH RLL DIAGNOSIS: BRONCH WASH RLL NEGATIVE FOR MALIGNANT EPITHELIAL CELLS. REACTIVE BRONCHIAL CELLS ARE PRESENT. PULMONARY MACROPHAGES (DUST CELLS) ARE PRESENT. REACTIVE SQUAMOUS CELLS ARE PRESENT. Pathologist ICD10: 02 R91.8 Signed out by: 02 Jamilah Birch MD, Pathologist NPI- [id number] Performed by: 01 Tabatha Sol, Residential Finish Carpenter ([facility]) Gross description: 01 10ML, RED, 1 TP /LCS 10/13/2019 1705 Local FLAG LEGEND: L-Low Normal,H-High Normal,LL-Alert Low,HH-Alert High <-Panic Low,>-Panic High,A-Abnormal,AA-Critical Abnormal Performed at: [address] [place] [address] Lucho Juares MD, [address] [address] Jamilah Birch MD, Specimen Comment: A courtesy copy of this report has been sent to [phone] Specimen Comment: [phone] Specimen Comment: Report sent to / DR MEANS Specimen Comment: A duplicate report has been generated due to demographic updates. Performed at: [address], [place], [place] [id number] [address] [address] PATHOLOGY RPT PROCEDURE Name: [facility] Room #: REG DEL Myra#: [id number] Admission: 10/13/19 Date of : 77 Discharge: Report #: [id number] Path Case #: [id number] MD Lucho Juares MD Phone: [phone]
== END | disposition home or self-care (01) ==
LOC: PUL 06:33 → OR 09:58 → EDSTATUS 14:58 → PUL 15:25
PROVIDERS: ATTEND Pediatrics
DX: R91.8 Other nonspecific abnormal finding of lung field (principal); B96.89 Other specified bacterial agents as the cause of diseases classified elsewhere; R04.2 Hemoptysis; I10 Essential (primary) hypertension; E11.9 Type 2 diabetes mellitus without complications; E78.00 Pure hypercholesterolemia, unspecified; J45.909 Unspecified asthma, uncomplicated; D64.9 Anemia, unspecified; Z98.890 Other specified postprocedural states; Z79.899 Other long term (current) drug therapy; Z87.891 Personal history of nicotine dependence
CPT/HCPCS: 62110; 62900; 70005

== ENCOUNTER → 2020-05-08 | Outpatient (CLI) | payer OTHER | LOC: CAT 10:24 | PROVIDERS: ATTEND Pediatrics | DX: J84.10 Pulmonary fibrosis, unspecified (principal); J98.4 Other disorders of lung; R91.1 Solitary pulmonary nodule; M79.89 Other specified soft tissue disorders ==